=== PATIENT | male | born 1945 | race Caucasian/White ===

== ENCOUNTER → 2024-02-10 10:09 | Outpatient (REF) | payer MEDICARE, OTHER, SELFPAY | LOC: HWRAD 10:09 | PROVIDERS: ATTENDING PHYSICIAN Thoracic Surgery (Cardiothoracic Vascular Surgery); FAMILY PHYSICIAN Family Medicine; REFERRING PHYSICIAN Internal Medicine Cardiovascular Disease | DX: I25.10 Atherosclerotic heart disease of native coronary artery without angina pectoris (principal); Z01.818 Encounter for other preprocedural examination | CPT/HCPCS: 71250 ==

== ENCOUNTER 2024-02-14 07:25 | Inpatient (IN) | payer MEDICARE, OTHER, SELFPAY ==
--- NOTE | 2024-02-13 11:50 | CM ---
spoke to pt in PAT's, we discussed preop CABG teaching including sternal and driving restrictions, he is prev indep, lives with his in a split level home with 1 step to enter. he has a cane, walker and transport chair at home to use if needed.
he is agreeable to a f/u visit from the ct transitional care nurse after dc. plan is for CABG 02/13. cm role explained and all questions answered.
[2024-02-13 13:49] LABS: % Basophils 0.8 % (0-2); % Eosinophils 3.7 % (0-6); % Immature Granulocytes 0.3 % (0-0.5); % Lymphocytes 21.4 % (20.5-51.1); % Monocytes 9.9 % (1.7-9.3); % Neutrophils 63.9 % (42.2-75.2); ALT (SGPT) 37 U/L (0-50); APTT 30.2 Sec (23.4-35.0); AST (SGOT) 39 U/L (17-59); Absolute Basophils 0.1 10^3/uL (0-0.2); Absolute Eosinophils 0.2 10^3/uL (0-0.7); Absolute Lymphocytes 1.4 10^3/uL (1.2-3.4); Absolute Monocytes 0.6 10^3/uL (0.1-0.6); Absolute Neutrophils 4.1 10^3/uL (1.4-6.5); Albumin 4.5 g/dl (3.5-5.0); Alkaline Phosphatase 62 U/L (38-126); Blood Urea Nitrogen 31 mg/dl (9-20); Calcium 9.7 mg/dl (8.4-10.2); Carbon Dioxide 26 mmol/L (22-30); Chloride 100 mmol/L (98-107); Direct Bilirubin 0.2 mg/dl (0.0-0.4); Glucose 116 mg/dl (70-99); Hematocrit 38.4 % (39.0-52.0); Hemoglobin 13.3 g/dL (13.0-18.0); INR 1.09; Mean Corp Hgb Conc. 34.6 g/dL (33.0-37.0); Mean Corpuscular Hgb 33.8 pg (27.0-31.0); Mean Corpuscular Volume 97.7 fL (80.0-94.0); Nucleated Red Blood Cells % 0 % (-); PT 13.9 Sec (11.4-14.6); Platelet Count 352 10^3/uL (130-400); Potassium 4.1 mmol/L (3.5-5.1); Red Blood Cell Count 3.93 10^6/uL (4.70-6.10); Red Cell Dist. Width 12.5 % (11.5-14.5); Sodium 138 mmol/L (135-145); Total Bilirubin 0.4 mg/dl (0.2-1.3); White Blood Cell Count 6.4 10^3/uL (4.8-10.8); eGFR 40.25
[2024-02-13 14:04] LABS: Urine Albumin Negative (Neg - Trace); Urine Bilirubin Negative (Negative); Urine Character Clear (Clear); Urine Color Yellow; Urine Glucose 3+ (Negative); Urine Ketone Negative (Negative); Urine Leukocyte Negative (Negative); Urine Nitrite Negative (Negative); Urine Occult Blood Negative (Negative); Urine Specific Gravity 1.015 (<1.030); Urine Urobilinogen Negative (Neg - 1+)
[2024-02-14] VITALS (11 sets, daily range): BP systolic 87–128; BP diastolic 54–88; BMI 28.0
--- NOTE | 2024-02-14 07:30 | W.CVOR.SURPR ---
CVOR Surgeon Immed Pre Op
-
I have examined this patient prior to performance of the scheduled procedure.
The patient's condition is unchanged from the time of the dictated/written History and
Physical and the patient is able to undergo the scheduled procedure.
CABG + KANNAN Clip
--- NOTE | 2024-02-14 08:24 | CM ---
pt in OR today, cm to follow.
[2024-02-14 09:23] LABS: Glycohemoglobin (HgbA1c) 6.5 % (4.0-5.6)
[2024-02-14] MEDS: MAGNESIUM OXIDE 500 MG PO (09:37)
[2024-02-14] MEDS: PROTONIX 40 MG PO (09:37)
[2024-02-14] MEDS: LOPRESSOR 25 MG PO (09:37)
--- NOTE | 2024-02-14 09:45 | PTCARENOTE ---
Pt arrived to CVICU at 0730 into room 2261. Pt confirmed nothing to eat or drink since midnight. Confirmed showering x2 with surgical wash. Pt clipped and prepped. ABO collected and sent to lab. Height, weight, vitals obtained. Admission questions
completed. Pre-op medications administered. Pt's at bedside. Anesthesia to bedside, placed left radial A line and peripheral IV.
[2024-02-14] MEDS: BACTROBAN 2% OINTMENT 1 APPLIC NASAL ×2 (09:47→19:48)
[2024-02-14 11:39] LABS: ACT+ - POC 96 Seconds (82-134)
[2024-02-14 12:13] LABS: Urine Albumin Negative (Neg - Trace); Urine Bilirubin Negative (Negative); Urine Character Clear (Clear); Urine Color Yellow; Urine Glucose 3+ (Negative); Urine Ketone Negative (Negative); Urine Leukocyte Negative (Negative); Urine Nitrite Negative (Negative); Urine Occult Blood Negative (Negative); Urine Specific Gravity 1.015 (<1.030); Urine Urobilinogen Negative (Neg - 1+)
[2024-02-14 13:40] LABS: ACT+ - POC 467 Seconds (82-134)
[2024-02-14 14:04] LABS: B.E. - POC -2.4 mmol/L; Glucose - POC 101 mg/dl (65-99); HCO3 - POC 22 mmol/L (21-29); Hematocrit - POC 33 % PCV (42-52); Hemodilution- POC Yes; Hemoglobin Calculated - POC 11.4; Ionized Calcium - POC 1.27 mmol/L (1.12-1.27); PCO2 - POC 38 mmHg (35-45); PO2 - POC 536 mmHg (80-100); POC Comment PRE; Potassium - POC 3.5 mmol/L (3.6-5.0); Sodium - POC 143 mmol/L (135-145); pH - POC 7.38 (7.35-7.45)
[2024-02-14 14:13] LABS: ACT+ - POC 479 Seconds (82-134)
[2024-02-14 14:40] LABS: B.E. - POC 0.1 mmol/L; Glucose - POC 152 mg/dl (65-99); HCO3 - POC 25 mmol/L (21-29); Hematocrit - POC 24 % PCV (42-52); Hemodilution- POC Yes; Ionized Calcium - POC 1.08 mmol/L (1.12-1.27); O2 Saturation %Calculated-POC 99.9 5 (92-96); PCO2 - POC 39 mmHg (35-45); PO2 - POC 307 mmHg (80-100); POC Comment CPB; Potassium - POC 4.8 mmol/L (3.6-5.0); Sodium - POC 139 mmol/L (135-145); pH - POC 7.41 (7.35-7.45)
[2024-02-14 14:49] LABS: ACT+ - POC 470 Seconds (82-134)
[2024-02-14 15:01] LABS: B.E. - POC -0.3 mmol/L; Glucose - POC 135 mg/dl (65-99); HCO3 - POC 24 mmol/L (21-29); Hematocrit - POC 25 % PCV (42-52); Hemodilution- POC Yes; Hemoglobin Calculated - POC 8.6; Ionized Calcium - POC 1.14 mmol/L (1.12-1.27); O2 Saturation %Calculated-POC 99.8 5 (92-96); PCO2 - POC 39 mmHg (35-45); PO2 - POC 229 mmHg (80-100); POC Comment CPB; Potassium - POC 4.2 mmol/L (3.6-5.0); Sodium - POC 143 mmol/L (135-145)
[2024-02-14 15:10] LABS: ACT+ - POC 433 Seconds (82-134)
[2024-02-14 15:40] LABS: B.E. - POC 0.1 mmol/L; Glucose - POC 126 mg/dl (65-99); HCO3 - POC 25 mmol/L (21-29); Hematocrit - POC 26 % PCV (42-52); Hemodilution- POC Yes; Hemoglobin Calculated - POC 8.9; Ionized Calcium - POC 1.17 mmol/L (1.12-1.27); PCO2 - POC 39 mmHg (35-45); PO2 - POC 407 mmHg (80-100); POC Comment WARM; Potassium - POC 4.1 mmol/L (3.6-5.0); Sodium - POC 144 mmol/L (135-145); pH - POC 7.41 (7.35-7.45)
[2024-02-14 15:44] LABS: ACT+ - POC 90 Seconds (82-134)
[2024-02-14 15:50] LABS: B.E. - POC -1.9 mmol/L; Glucose - POC 129 mg/dl (65-99); HCO3 - POC 23 mmol/L (21-29); Hematocrit - POC 27 % PCV (42-52); Hemodilution- POC Yes; Hemoglobin Calculated - POC 9.3; Ionized Calcium - POC 1.42 mmol/L (1.12-1.27); O2 Saturation %Calculated-POC 99.7 5 (92-96); PCO2 - POC 37 mmHg (35-45); PO2 - POC 205 mmHg (80-100); POC Comment POST; Potassium - POC 3.9 mmol/L (3.6-5.0); Sodium - POC 144 mmol/L (135-145)
[2024-02-14] MEDS: NOVOLOG FLEXPEN SC ×2 (16:07→16:16)
[2024-02-14] MEDS: TYLENOL PO ×2 (16:16→21:20)
[2024-02-14] MEDS: NEURONTIN PO (16:16)
[2024-02-14] MEDS: PACERONE PO ×2 (16:16→23:40)
--- NOTE | 2024-02-14 16:18 | W.PN.CD ---
Addendum entered and electronically signed by Jovany Humphries MD 02/14/24 16:50:
I saw and examined the patient.
The MANUFACTURING QUALITY TECHNICIAN's note was reviewed and I agree with the note.
Comment: 78M with a history of prostate cancer, s/p XRT, hypertension, dyslipidemia with statin intolerance, and type 2 diabetes who was referred to cardiology for an abnormal EKG. He endorsed more fatigue and decreased activity tolerance. He was
found to have an ejection fraction of 40% along with an abnormal stress test. He was referred for [facility] which demonstrated multivessel coronary artery disease; he is now s/p 5 vessel CABG.
- routine post-op care
- wean vent as tolerated
Original Note:
Today's Communication / Plan
-
Follow telemetry
Postoperative management per CT surgery
Impression / Plan
-
BACKGROUND: 78M with a history of prostate cancer, s/p XRT, hypertension, dyslipidemia with statin intolerance, and type 2 diabetes who was referred to cardiology for an abnormal EKG. He endorsed more fatigue and decreased activity tolerance. He
was found to have an ejection fraction of 40% along with an abnormal stress test. He was referred for [facility] which demonstrated multivessel coronary artery disease.
Director Of Enrollment: Dr. Krunal Lujan
CAD s/p CABG x5 on 02/14/[address] Hastings
-Pre EF 45% & 60% post
-EKG with sinus with PVCs
-Not requiring support
-Follow telemetry
HTN, follow post operatively
Type II DM, Hgba1c 6.5%
Dyslipidemia, statin intolerant, on Nexlizet
CKD Stage 3
Prostate cancer s/p XRT
Former smoker
SUBJECTIVE:
Intubated and sedated.
Physical Exam
Vital Signs/Labs
Vital Signs
Temp Pulse Resp BP Pulse Ox
97.4 F 57 16 124/84 100
02/14/24 07:55 02/14/24 11:15 02/14/24 11:15 02/14/24 07:39 02/14/24 11:15
02/13/24 02/14/24 02/15/24
06:59 06:59 06:59
Actual Weight 83.6 kg
PT 13.9 Sec (11.4-14.6) 02/13/24 09:09
INR 1.09 02/13/24 09:09
APTT 30.2 Sec (23.4-35.0) 02/13/24 09:09
Physical Exam
Constitutional: No acute distress and Comfortable
EENT: Anicteric and Moist mucous membranes
Cardiovascular: Rhythm & rate is regular, Pedal edema is absent and S1S2 is normal
Respiratory: Lungs clear to auscul. and Other (Intubated and sedated on mechanical ventilation)
GI: Soft, Distention absent and Flat
Neuro/Psych: Other (Sedated)
Other: Skin (Warm and dry without edema)
Data Reviewed
-
Date of Service: February 14, 2024
EKG: Report Reviewed by me
Labs: Labs Reviewed by me
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
--- NOTE | 2024-02-14 16:30 | PTCARENOTE ---
Addendum entered by Brittney Cr RN 02/14/24 19:10:
CI 2.48, PA pressures 20s/10s. CVP 7-8.
Original Note:
Received patient from CVOR at 1630. Pt intubated and sedated. POX 95%. 8.0 ETT 22cm at the lip. SIMV 60% 12 600 5/5. Left pleural chest tube to -20cm suction draining red fluid. Mediastinal chest tubes x2 y-sited to 1 atrium to -20cm suction
draining red fluid. No air leaks, tidaling, or crepitus noted. SR on tele with rates in the 90s. BP stable off gtts. +Rub. Bilateral radial pulses palpable. Bilateral DP pulses weakly palpable. No edema noted. Epicardial v-wire intact. Sensing and
Stimulation thresholds completed and unable to achieve capture, CT PAs notified. Abdomen soft, nontender. Hypoactive BS. Lino catheter intact draining adequate amounts of clear yellow urine. Sternal incision approximated with skin glue, METAL SASH SETTER. Left
groin puncture site approximated with skin glue, METAL SASH SETTER. Left SVG harvest approximated with skin glue and SAUL-CDI. Right IJ cordis with swan floated to 43cm. Left radial paresh intact with appropriate waveform. All lines flushed, leveled, and zeroed.
Right AC 18g PIV intact. See MAR for medication administration. See worklist for complete nursing assessment. Post op EKG, CXR, and labs completed.
Gtts on arrival:
Precedex 0.5mcg/kg/hr
Insulin 1unit/hour
NSS KVO x2
--- NOTE | 2024-02-14 16:35 | W.PN.CT.SURG ---
CT Surgery Operative Note
-
CARDIAC SURGERY OPERATIVE REPORT
Preoperative Diagnosis: Multivessel Coronary Artery Disease with proximal LAD involvement and reduced left ventricular ejection fraction
Postoperative Diagnosis: Same plus new onset atrial fibrillation
Procedure(s) Performed:
1. Standard sternotomy with aortic and right atrial cannulation
2. Coronary artery bypass grafting x 5 (In situ ALICEA to LAD, Ao to RSVG to diagonal, Ao to RSVG to Ramus sequential to LPL, Ao to RSVG to distal RCA)
3. Left atrial modified surgical maze, posterior wall and pulmonary vein isolation using RF ablation
4. Left atrial appendage exclusion
5. Endoscopic vein harvesting of left lower extremity
6. Placement of temporary ventricular pacing wires
7. Transesophageal echocardiography
Date of Surgery: 02/14/2024
Comorbidities:
1. Mild to moderately reduced left ventricular function, ischemic cardiomyopathy, chronic
2. Stable angina
3. Multivessel coronary disease
4. Type 2 diabetes mellitus
5. Hyperlipidemia
6. Hypertension
7. Gout
8. Chronic kidney disease
9. GERD
10. Hepatic steatosis
11. New onset atrial fibrillation
Attending Surgeon: Ross Hastings MD, MS
Assistants: Tatiana Garcia PA-C (present and necessary to technology assistant, endoscopic vein harvest, retraction, suction, exposure, suture management, and wound closure under my direction)
Anesthesiology: Isiah Colon MD and Carolina Quiroga CRNA
Scrub and Circulating RNs: Vanna De Luna and Rianna Ramirez, ROME, Elvira Puckett and Clair Ponce RN
Bar Tacker Sewing Machine: Carolina White CCP
Anesthesia: GETA
EBL: per perfusion records
Products: None
CPB Time: 109 minutes
Aortic Cross Clamp Time: 88 minutes
Implants:
1. KANNAN Clip, 35mm SN [id number]
Indication(s) for Procedures: This is an 78-year-old male with multivessel coronary disease involving the proximal LAD and also has diabetes. He had more fatigue and shortness of breath with activity likely is angina equivalent. His family history
was significant for coronary artery disease. His left heart cath revealed significant disease in all branches. Due to his disease pattern and stable angina, he was offered surgical revascularization which he accepted. His CHADsVasc is also
elevated and so the plan is to perform left atrial appendage ligation at time of surgery.
Conduit(s) Quality:
ALICEA - excellent / skeletonized
RSVG - excellent / uniform in size, minimal varicosities, no significant thickening
Target(s) Quality:
dRCA - good/ this was a chronically occluded lesion however there was excellent flow with test dosing of antegrade flowing approximately 40 cc a minute at a pressure of 80 mmHg.
LPL -good/this was a small target of all 5, however test dosing antegrade demonstrated adequate flow at approximately 30 to 40 cc a minute at a pressure of 80 mmHg.
RI -excellent/this was the largest target of all 5 grafts, test dosing with the distal sequential occluded demonstrated to flow approximate 50 to 60 cc a minute at a pressure of 80 mmHg. Releasing of the sequential graft demonstrated increase in
flow and drop in pressure.
Diagonal -excellent/decent sized target, flow at approximately 50 to 60 cc a minute at a pressure of 80 mmHg with test dosing antegrade.
LAD -good/according to the cath, there was some diffuse disease of the midportion to distal portion where there was good visual flow in the LAD territory upon removal of the bulldog clamp.
Findings: Left ventricular ejection fraction preoperatively was mildly reduced at approximate 45% with regional wall motion abnormalities in the anterior septal region. Following surgery his EF improved significantly to 65% and is hyperdynamic with
a cardiac index of over 2. There were no regional wall motion abnormalities coming off cardiopulmonary bypass. During cannulation he developed atrial fibrillation and so due to his age, chads Vascor, and risk for strokes, I elected to perform a
modified left atrial maze in the form of a posterior wall isolation. His left atrial appendage was verified to be free of any thrombus or debris preoperatively. A 35 mm clip was applied flush the base and totally occlusive with no residual flow on
color Doppler. The ALICEA was harvested in a skeletonized fashion. Following bypass grafting, test dose cardioplegia was given down each distal and confirmed patency and hemostasis. Each distal was probed both proximally and distally to confirm
disease and patency, respectively. He did not require any blood products, did not require any inotropic support, and was actually hyperdynamic and hypertensive requiring Cardene. After coming off cardiopulmonary bypass he regained sinus rhythm.
Description of Procedure: The patient was taken to the operating room. Their identity and procedure to be performed were verified and they were positioned supine on the operating table. Induction via general anesthesia with endotracheal intubation
was performed and central venous access and arterial monitoring were inserted. A preoperative transesophageal echocardiogram was performed to assess cardiac function and valvular function. The patient was then prepped and draped from chin to feet in
a sterile fashion. A preoperative time-out was performed with all members of the team present. A midline chest incision was performed along with median sternotomy. Simultaneous endoscopic access of the left lower extremity for saphenous vein harvest
was obtained along with administration of an initial 5,000 units of IV heparin. A RulTract sternal retractor was positioned to exposure the left internal mammary bed. The mammary was harvested and found to have good flow. A bulldog clamp was applied
to the distal end of the mammary after dividing it. It was wrapped in a papaverine soaked RayTec and replaced back into the left hemithorax. The RulTract was exchanged for a median sternal retractor. The innominate vein was isolated. Full
heparinization was given (a total of 50,000 units). We created a pericardial well. The aortic cannulation site was chosen where it was soft, pliable, and free of calcium. Cannulation was performed with an arterial cannula in the ascending aorta and
a triple-stage venous cannula through the right atrial appendage. The arterial cannula line had an appropriate bounce and correlating pressures with test dosing. Next, a root vent/antegrade cannula was inserted into the ascending aorta. The ACT was
confirmed to be over 400 and retrograde autologous priming was performed before commencing cardiopulmonary bypass. At this point I mobilized the SVC off of the right pulmonary artery and developed the oblique sinus. The encompass RF ablation clamp
was then placed across the oblique sinus and underneath the SVC across the transverse sinus and 3 successful pairs of ablations were performed. The heart was then medialized and a 35 mm clip was applied flush the base of the left atrial appendage.
Next, the pulmonary artery was away from the aorta to facilitate a clamp site. The aortic cross-clamp was placed after decreasing the flow on the bypass and mean arterial pressure. A total of 1.2L initial dose of antegrade Del-Nido
cardioplegia solution was given and planned for re-dosing every 75 minutes as necessary. There was rapid electro-mechanical arrest of the heart at 400 cc of cardioplegia. The left ventricle was observed for distention on echocardiogram and manual
palpation. Cold slush was placed into a sponge and topically on the RV while we systemically cooled to 34 degrees centigrade.
I positioned the heart to expose the distal right coronary. A [place] blade was used to expose the coronary and perform the arteriotomy. Coronary Jorge scissors were used to enlarge the incision. The saphenous vein was trimmed and beveled to an
appropriate size. The distal anastomosis was performed using 7-0 prolene in an end-to-side fashion. Antegrade cardioplegia was administered into the graft. Appropriate hemostasis and flow were confirmed. The graft was measured for length to the
aorta and cut. The apex of the heart was then repositioned cephalad and the LPL branch was visualized. Using a [place] blade was dissected free in a similar fashion a small coronary arteriotomy was created. The hutton were quite thin but the vessel
itself was of decent caliber. Using the vein graft and end-to-side anastomosis was created with 8-0 Prolene and secured with a micro core knot. Test dosing of antegrade cardioplegia demonstrated good hemostasis and flow. The heart was then
positioned in order to accommodate a sequential graft to the ramus. A suitable site on the ramus intermedius was chosen. We dissected and prepared the distal target in a similar fashion. A [id number] anastomosis was created with a 7-0 prolene
after creating a small venotomy on the underbelly of the vein graft. Antegrade cardioplegia was administered into the graft with the distal sequential occluded. There is excellent flow and hemostasis. The graft was measured for length to the aorta
and cut. The diagonal vessel was then identified and prepared in a similar fashion. A small coronary arteriotomy was created in end-to-side anastomosis with the remaining vein graft was performed with 7-0 Prolene in a running fashion. Test dosing
of antegrade demonstrated excellent flow and hemostasis. A suitable target on the mid/distal left anterior descending was identified. We dissected and prepared the distal target in a similar fashion. We retrieved the ALICEA from the chest and created
a pericardial opening while being cognizant of the phrenic nerve to facilitate the course of the mammary. The distal end of the mammary was prepped and beveled to size. We verified orientation and length of the KAMRON and found brisk flow. An
end-to-side anastomosis was created with a 7-0 prolene. We temporarily released the bulldog clamp on the mammary to inspect flow. Perfusion to the LAD territory was visualized and hemostasis was confirmed. The bull clamp was replaced on the mammary.
The heart was filled and the root was distended with antegrade cardioplegia to make final assessment of graft length and orientation. We created 3 aortotomies using a #11 blade then a 4.0mm aortic punch. The proximal anastomoses were created in an
end-to-side fashion using 6-0 prolene. At the the same time, we re-warmed to 36.5 degrees centigrade. The bulldog clamp was removed from the mammary. Temporary bipolar ventricular pacing wires were placed on the base of the right ventricle. The
patient was placed in a Trendelenburg position and flows on bypass were lowered. The aortic cross clamp was removed and flows were slowly brought back up. All bypass grafts were inspected and were free from kinking or twisting. The distal and
proximal anastomoses appeared hemostatic. Once transesophageal echocardiography appeared satisfactory for de-airing, the flows were temporarily lowered for root vent removal. After verifying acceptable parameters, we initiated weaning from
cardiopulmonary bypass. Once we were off cardiopulmonary bypass, the venous cannula was clamped and removed. A test dose of protamine was administered and the patient was monitored for any adverse reaction before resuming protamine. Once half of the
protamine dose was delivered, pump suckers were turned off and the systolic blood pressure was lowered for aortic decannulation. The aortic cannula was removed and pursestrings were tied down. All cannulation sites were oversewn with a 4-0 prolene.
The mammary bed was inspected and hemostasis was confirmed. Once the mediastinum was hemostatic, 19Fr Leonel drain was placed in the left pleural cavity and two 24Fr Leonel drains were placed within the pericardium. The sternum was approximated with 4
#7 single and 3 #8 double stainless steel wires. Fascia was approximated with #1 vicryl suture. The subcutaneous, dermis and epidermis were closed in layers in a running fashion. The skin wound was cleansed and dressed.
All instrument, sponge, and needle counts were confirmed to be correct x 2 at the end of the operation. The patient was transferred to the cardiac intensive care unit in critical but stable condition.
I, Dr. Ross Hastings, was present, scrubbed for, and performed all critical elements of this procedure.
Ross Hastings MD, MS
Cardiothoracic Surgeon
This operative dictation was created using the [employer] dictation system. Please excuse any grammatical, typographical, or 'sound alike' errors
--- NOTE | 2024-02-14 16:41 | CON.INTV ---
Consultation
Consultation Request
Date/Time Consultation Requested: 02/14/24
Date/Time Consultation Performed: 02/14/24
Performing Provider: Stan
Reason for Consultation: CVICU
Medical History
-
History of Present Illness:
Patient is an 78-year-old male with previous history of multivessel CAD with complaints of increasing fatigue and decreased exercise tolerance in the past 6 months. Underwent cardiac catheterization on 02/07/2024 demonstrating chronically occluded
proximal RCA with significant proximal LAD disease with moderate reduction in LV function and regional wall motion abnormalities. Underwent CAB x 5 02/14/2024 and postoperative transferred to CVICU for further management.
Past Medical History
Past Medical History: Other (see list below)
Social History
Tobacco: Non-smoker
Alcohol: None
Drug: None
Family History
Family History: Reviewed & Not Pertinent
Allergies / Home Medications
Allergies
Allergy/AdvReac Type Severity Reaction Status Date / Time
Ocranlm-CXG-UaN Reductase Allergy myalgias Verified 02/14/24 09:12
Inhibitor
Home Medications
�Medication �Instructions �Recorded �Confirmed �Last Taken �Type
amlodipine 5 mg tablet 5 mg PO QPM 02/10/24 02/14/24 02/11/24 20:00 History
aspirin 81 mg tablet,delayed 81 mg PO HS 02/10/24 02/14/24 02/12/24 20:00 History
release
bempedoic acid 180 mg-ezetimibe 10 1 tab PO 02/10/24 02/14/24 02/12/24 20:00 History
mg tablet (Nexlizet)
cholecalciferol (vitamin D3) 50 50 mcg PO DAILY 02/10/24 02/14/24 02/12/24 08:00 History
mcg (2,000 unit) capsule (Vitamin
D3)
coenzyme Q10 100 mg capsule 200 mg PO DAILY 02/10/24 02/14/24 02/12/24 08:00 History
(CoQ-10)
empagliflozin 10 mg tablet 10 mg PO DAILY 02/10/24 02/14/24 02/12/24 08:00 History
(Jardiance)
hydrochlorothiazide 12.5 mg tablet 12.5 mg PO HS 02/10/24 02/14/24 02/12/24 08:00 History
multivitamin with minerals-folic 1 tab PO DAILY 02/10/24 02/14/24 02/12/24 08:00 History
acid 80 mcg chewable tablet
(Centrum Adult 50 Plus)
omeprazole 20 mg tablet,delayed 20 mg PO Q48H 02/10/24 02/14/24 02/10/24 20:00 History
release
tirzepatide 10 mg/0.5 mL 10 mg SC YEPEZ 02/10/24 02/14/24 02/11/24 12:00 History
subcutaneous pen injector
(Andreia)
Review of Systems
-
Unable to Obtain full review of systems at this time due to: Patient Intubation
Vitals / Labs / Diagnostic Testing
Vital Signs
Temp Pulse Resp BP Pulse Ox
97.4 F 57 16 124/84 100
02/14/24 07:55 02/14/24 11:15 02/14/24 11:15 02/14/24 07:39 02/14/24 11:15
Microbiology
02/13/24 09:09 Nose MRSA Screen - Final
No Methicillin Resistant Staphylococcus aureus isolated.
Diagnostic Testing:
Physical Exam
-
HEENT: Normocephalic, Anicteric and Moist Mucous Membranes
Cardiovascular: S1/S2, Regular Rhythm, Peripheral Edema (none) and Other (incision noted, CDI)
Respiratory: Clear, Non-Labored Respirations and Other (chest tubes/ETT)
GI: Soft, Non Distended and Non Tender
Neurology: Other (sedated/intubated)
Skin: Warm, Dry and Good Color
General: Comfortable and Other (NAD)
Assessment
-
Patient is an 78-year-old male with previous history of multivessel CAD with complaints of increasing fatigue and decreased exercise tolerance in the past 6 months. Underwent cardiac catheterization on 02/07/2024 demonstrating chronically occluded
proximal RCA with significant proximal LAD disease with moderate reduction in LV function and regional wall motion abnormalities. Underwent CAB x 5 02/14/2024 and postoperative transferred to CVICU for further management.
MV CAD status post CABG x 5 02/14/2024
Perioperative mechanical ventilation
Mild postoperative anemia
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
Diabetes type 2
Hyperlipidemia
Chronic kidney disease
Prostate cancer 2020 status post radiation
Gout
GERD
Fatty liver
Femur surgery
Left inguinal hernia repair
Tonsillectomy
Mohs surgery
Plan
S/p CABG POD #0
Titrate off pressors per protocol
ECHO reviewed with low-normal function
PA catheter readings reviewed
Management of chest tubes per primary service
Intubated/sedated, initiate SAT when able
Pain control
RASS goal of 0 to -1
Intubated for procedure, SBT trial when patient able to spontaneously breath
Current vent settings: SIMV 600/12/60/5
ABG(s) reviewed/adequate
CXR with no obvious opacities/infiltrates, low lung volumes, ETT in good position, lines/tubes in place
Extubate per protocol
Maintain supplement oxygen as needed
No prior history of pulmonary disease
No Prior PFTs for review
Can add nebulizers if needed
Aspiration precautions
Encouraged incentive spirometry, OOB/ambulation/early mobility
Advance diet as tolerated following extubation
GI prophylaxis if indicated for mechanical ventilation >48 hours
Monitor critical I/O's
Lino/chest tube output
Hb/platelets postoperatively stable
Trend CBC for now
Can transfuse if indicated for Hb <7, plt <50 in surgical patients
DVT prophylaxis including SCDs
Insulin protocol initiated and ongoing
Transition to SQ/off as indicated per team
We will follow
Diagnostic Data
Chest X-Ray:
CT Scan: CHEST 02/10/24- Dense coronary artery calcifications as detailed above. Calcifications are also noted involving the aortic valve. Moderate atherosclerotic plaque involving a nonaneurysmal thoracic aorta along with mild atherosclerotic plaque
involving the proximal left subclavian artery, brachiocephalic artery, and proximal to mid right subclavian artery. No active pulmonary process or suspect nodule/mass.
Echo: 01/13/24- Mildly enlarged left ventricular size, normal wall thickness and mild to moderate decrease in systolic function. Moderate hypokinesis of the anterior septum and proximal anterior hutton. The ejection fraction is estimated at 40 %.
Grade 1 diastolic dysfunction. Normal right ventricular size and function. Mild to moderate left atrial enlargement. Normal right atrium. Structurally normal mitral valve without significant stenosis w/ mild
regurgitation. Structurally normal aortic valve, mildly calcified and restricted without significant stenosis w/ trivial to mild regurgitation. Structurally normal tricuspid valve without significant stenosis w/ mild regurgitation.
Estimated pulmonary artery pressure is 25 mmHg. Structurally normal pulmonic valve without significant stenosis or regurgitation. Normal pericardium without effusion. Normal aortic root. IVC not well-seen.
PFT's:
Reports and relevant images were personally reviewed.
-----
Critical Care time 50 mins -- The patient is admitted for acute critical illness for the treatment of vital organ failure and/or prevention of further life-threatening conditions. Total care includes time spent in review of history, physical exam,
medications, hemodynamic/ventilator parameters, laboratory data, imaging and discussion with house staff, pharmacy, respiratory therapy, day spa manager, and nursing.
[2024-02-14 16:43] LABS: Glucose - Point of Care 136 mg/dl (70-99)
[2024-02-14 16:50] LABS: B.E. -3.2 mmol/L; Ionized Calcium 1.32 mMOL/L (1.15-1.33); O2 Saturation % 97.5 % (94-98); PCO2 39 mmHg (35-48); PO2 79 mmHg (83-108); Potassium 4.3 mMOL/L (3.5-5.1); Sodium 140 mMOL/L (136-145); pH 7.36 (7.35-7.45)
[2024-02-14 17:04] LABS: Blood Urea Nitrogen 27 mg/dl (9-20); Estimated Creatinine Clearance 41 ml/min; Glucose 129 mg/dl (70-99); Magnesium 2.9 mg/dl (1.6-2.3)
[2024-02-14 17:05] LABS: Hematocrit 26.7 % (39.0-52.0); Hemoglobin 9.5 g/dL (13.0-18.0); Platelet Count 170 10^3/uL (130-400)
[2024-02-14 17:08] LABS: INR 1.57; PT 18.6 Sec (11.4-14.6)
[2024-02-14 17:09] LABS: APTT 31.4 Sec (23.4-35.0)
[2024-02-14] MEDS: NSS 500 IV (17:09)
[2024-02-14] MEDS: ANCEF 10 IV ×2 (17:09)
--- NOTE | 2024-02-14 18:00 | PTCARENOTE ---
Pt awakened briefly. Able to shake head yes/no appropriately. Denies pain and nausea. Able to wiggle toes and fingers. Drift back to sleep quickly. CT PA at bedside. Epicardial v-wire leads swapped and pacer now functions appropriately. Set to back
up 50//2. No pacing noted.
[2024-02-14 18:03] LABS: Glucose - Point of Care 192 mg/dl (70-99)
--- NOTE | 2024-02-14 18:30 | PTCARENOTE ---
CHG bath completed. Pt turned from sided to side. No significant dumps from chest tubes. Pt tolerated.
--- NOTE | 2024-02-14 19:00 | PTCARENOTE ---
CI 1.9, CT DEVELOPMENT INTERN notified. No new orders at this time.
[2024-02-14 19:05] LABS: Glucose - Point of Care 150 mg/dl (70-99)
[2024-02-14] MEDS: OFIRMEV 100 IV (19:40)
[2024-02-14] MEDS: SENOKOT-S PO (19:50)
--- NOTE | 2024-02-14 20:00 | PTCARENOTE ---
Received pt from [facility]: Pt is intubated, drowsy, responding to verbal commands, MAEE, ETT 8.0, 22cm @ lip; NSR with occasional PVCs, pericardial friction rub on auscultation, palpable peripheral pulses; no edema noted, temp epicardial v-wires
with back up settings 50-8-2; Lungs sounds diminished in bases, L pleural C/T, 2 medal sternal C/T to -20 cm of wall suction, C/T drainage WNL; hypoactive B/S, abdomen soft and non-tender, Lino draining clear, yellow urine; all surgical sites
stable, C/D/I. R I/J cordis with swan is floated to 43 cm., L rad a-line, all lines level, zeroed, flushed. PIV intact. See worklist for complete nursing assessment, interventions, VS, & I&O's.
[2024-02-14 20:03] LABS: Glucose - Point of Care 150 mg/dl (70-99)
[2024-02-14 20:47] LABS: B.E. -3.4 mmol/L; HCO3 21.3 mmol/L (21-28); Ionized Calcium 1.25 mMOL/L (1.15-1.33); PCO2 36 mmHg (35-48); PO2 186 mmHg (83-108); Potassium 4.1 mMOL/L (3.5-5.1); pH 7.38 (7.35-7.45)
[2024-02-14 20:49] LABS: Hematocrit 28.7 % (39.0-52.0); Hemoglobin 10.4 g/dL (13.0-18.0); Platelet Count 245 10^3/uL (130-400)
[2024-02-14 21:04] LABS: Glucose - Point of Care 151 mg/dl (70-99)
[2024-02-14] MEDS: ANCEF 5 IV (21:22)
--- NOTE | 2024-02-14 21:45 | RESPNOTE ---
PT was extubated at this time per PLASTIC PARTS FABRICATOR. PT was placed on a weaning trial @1945 and was tolerating well. After >30 mins, an acceptable ABG result was obtained. PT was suctioned and placed on a 6 L nasal cannula and told us his name. RT Applied oral
care after extubation due to increased thick oral secretions. PT performed several IS attempts, the best being 1,000 mls.
[2024-02-14] MEDS: ALBUMIN 5% 250 IV (21:49)
--- NOTE | 2024-02-14 22:01 | PTCARENOTE ---
Pt in NSR with occassional PVS, extubated to 6L NC @ 2145, tolerated extubation, pt is AA0X3, following verbal commands
[2024-02-14] MEDS: LOW STRENGTH ASPIRIN 81 MG PO (23:01)
[2024-02-14] MEDS: ROXICODONE 2.5 MG PO (23:01)
[2024-02-14 23:09] LABS: Glucose - Point of Care 162 mg/dl (70-99)
[2024-02-14] MEDS: NEURONTIN 100 MG PO (23:50)
[2024-02-15] VITALS (33 sets, daily range): BP systolic 84–140; BP diastolic 56–84; PULSE 77; O2SAT 99–100; BMI 28.4
--- NOTE | 2024-02-15 | PTCARENOTE ---
VSS, NSR with occasional PVC, AAOx3, 4L O2 @ 100%, C/T drainage within normal limits, pt resting comfortably in bed
[2024-02-15] MEDS: ZOFRAN 4 MG IV (01:01)
[2024-02-15 01:18] LABS: Glucose - Point of Care 168 mg/dl (70-99)
[2024-02-15 02:08] LABS: Glucose - Point of Care 160 mg/dl (70-99)
[2024-02-15 03:21] LABS: Glucose - Point of Care 130 mg/dl (70-99)
[2024-02-15] MEDS: ROXICODONE 5 MG PO (03:25)
[2024-02-15 03:35] LABS: Hematocrit 26.3 % (39.0-52.0); Hemoglobin 9.6 g/dL (13.0-18.0); Mean Corp Hgb Conc. 36.5 g/dL (33.0-37.0); Mean Corpuscular Volume 90.4 fL (80.0-94.0); Mean Platelet Volume 8.6 fL (7.4-10.4); Platelet Count 210 10^3/uL (130-400); Red Blood Cell Count 2.91 10^6/uL (4.70-6.10); Red Cell Dist. Width 12.3 % (11.5-14.5)
[2024-02-15 03:58] LABS: Blood Urea Nitrogen 28 mg/dl (9-20); Calcium 9.3 mg/dl (8.4-10.2); Carbon Dioxide 22 mmol/L (22-30); Chloride 112 mmol/L (98-107); Estimated Creatinine Clearance 41 ml/min; Glucose 120 mg/dl (70-99); Magnesium 2.6 mg/dl (1.6-2.3); Potassium 3.7 mmol/L (3.5-5.1); Sodium 143 mmol/L (135-145); eGFR 50.81
[2024-02-15 04:15] LABS: Glucose - Point of Care 130 mg/dl (70-99)
[2024-02-15] MEDS: KCL 50 IV ×2 (04:27→05:39)
[2024-02-15] MEDS: FLEXERIL 5 MG PO (05:04)
[2024-02-15] MEDS: TYLENOL 1000 MG PO ×3 (05:05→21:13)
--- NOTE | 2024-02-15 05:15 | W.PN.CT ---
Today's Communication / Plan
-
-pod #1
-CI 2.16, CO 4.25. Drips: Insulin
-CT output: L pleur 85/110, 2 meds 70/110 in 12/24 hrs
-deline
-continue insulin drip
-? keep Lino, follow I/O (CKD)
-follow Cr- 1.4 today (1.7 preop)
-K 3.7 - got 40 iv KCL
-current meds (ASA, Plavix, Lopressor, Amio, Protonix). Myalgia with statins (on bempedoic acid/ezetimibe preop)
-encourage IS, OOB
Assessment / Plan
-
- mv-CAD - s/p CABG x 5 (In situ ALICEA to LAD, Ao to RSVG to diagonal, Ao to RSVG to Ramus sequential to LPL, Ao to RSVG to distal RCA); Left atrial modified maze/PVI; LAAE (35mm clip) on 02/14/[address] Hastings, pod #1
- Intraop POP: LVEF preop was mildly reduced at approximate 45% with regional wall motion abnormalities in the anterior septal region. Following surgery, EF improved significantly to 65% and is hyperdynamic with a cardiac index of over 2. There
were no regional wma postop. During cannulation he developed atrial fibrillation. A 35 mm clip was applied flush at the base and totally occlusive with no residual flow on color Doppler. After coming off cardiopulmonary bypass, he regained sinus
rhythm.
- Mild to moderately reduced left ventricular function, ischemic cardiomyopathy, chronic
- New onset atrial fibrillation
- Stable angina (fatigue and shortness of breath with activity likely his angina equivalent)
- Multivessel coronary disease
- Type 2 diabetes mellitus
- Hyperlipidemia
- Hypertension
- Gout
- CKD 3a (preop Cr 1.7)
- GERD
- Hepatic steatosis
- Acute postop blood loss anemia - stable, no transfusion
- Acute postop atelectasis
- Acute postop hypokalemia
- Acute postop hypovolemia with subsequent hypervolemia
Discussed patient care with: Nursing and Care Team
Subjective
Procedure
- s/p CABG x 5 (In situ ALICEA to LAD, Ao to RSVG to diagonal, Ao to RSVG to Ramus sequential to LPL, Ao to RSVG to distal RCA); Left atrial modified maze/PVI; LAAE (35mm clip) on 02/14/[address] Hastings
-
Date of Service: February 15, 2024
Objective Data
-
PT 18.6 Sec (11.4-14.6) H 02/14/24 16:30
INR 1.57 02/14/24 16:30
APTT 31.4 Sec (23.4-35.0) 02/14/24 16:30
Vital Signs
Vital Signs
Temp Pulse Resp BP Pulse Ox
96.7 F L 76 16 94/62 99
02/15/24 01:19 02/15/24 01:19 02/15/24 01:19 02/15/24 01:00 02/15/24 01:19
CT Intake/Output/Weight
02/14/24 02/14/24 02/15/24
06:59 18:59 06:59
Intake Total 158.4 / 910.0 751.6 / 910.0
Output Total 315 / 900 585 / 900
Balance -156.6 / 10.0 166.6 / 10.0
SaO2: 99
Physical Exam
-
General: Awake and AOx3
Cardiovascular: Regular rate & rhythm, No Murmurs and No Rub
Respiratory: Decreased Breath Sounds
Sternum: Stable
Incision: Clean, Dry and Intact
Extremities: No Edema (1+DPs b/l)
Abdomen: soft, nondistended, decreased bowels sounds
Data Reviewed
-
Lab Results: Results Reviewed
Medications: Active Meds Reviewed
Chest X-Ray: Report Reviewed and Image Reviewed
ECG: Report Reviewed and Image Reviewed
[2024-02-15] MEDS: ANCEF 5 IV ×2 (05:39→13:57)
[2024-02-15 06:11] LABS: Glucose - Point of Care 145 mg/dl (70-99)
--- NOTE | 2024-02-15 07:15 | W.PN.INTV ---
Today's Communication / Plan
Recommendations
Extubated and doing well, wean supplemental O2 as tolerated
Off pressors
Transition off insulin gtt per protocol
Chest tube management per team
Encouraged OOB, PT/IS
Assessment
-
Patient is an 78-year-old male with previous history of multivessel CAD with complaints of increasing fatigue and decreased exercise tolerance in the past 6 months. Underwent cardiac catheterization on 02/07/2024 demonstrating chronically occluded
proximal RCA with significant proximal LAD disease with moderate reduction in LV function and regional wall motion abnormalities. Underwent CAB x 5 02/14/2024 and postoperative transferred to CVICU for further management.
MV CAD status post CABG x 5 02/14/2024
Perioperative mechanical ventilation
Mild postoperative anemia
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
Diabetes type 2
Hyperlipidemia
Chronic kidney disease
Prostate cancer 2020 status post radiation
Gout
GERD
Fatty liver
Femur surgery
Left inguinal hernia repair
Tonsillectomy
Mohs surgery
Plan
S/p CABG POD #1
Off pressors
ECHO reviewed with low-normal function
PA catheter readings reviewed
Management of chest tubes per primary service
Pain control
RASS goal of 0 to -1
Intubated for procedure, extubated and doing well
ABG(s) reviewed/adequate
CXR with stable post op changes
Maintain supplement oxygen as needed, wean to off as able
No prior history of pulmonary disease
No Prior PFTs for review
Can add nebulizers if needed
Aspiration precautions
Encouraged incentive spirometry, OOB/ambulation/early mobility
Advance diet as tolerated following extubation
GI prophylaxis if indicated for mechanical ventilation >48 hours
Monitor critical I/O's
Lino/chest tube output
Hb/platelets postoperatively stable
Trend CBC for now
Can transfuse if indicated for Hb <7, plt <50 in surgical patients
DVT prophylaxis including SCDs
Insulin protocol initiated and ongoing
Transition to SQ/off as indicated per team
Diagnostic Data
Chest X-Ray:
CT Scan: CHEST 02/10/24- Dense coronary artery calcifications as detailed above. Calcifications are also noted involving the aortic valve. Moderate atherosclerotic plaque involving a nonaneurysmal thoracic aorta along with mild atherosclerotic plaque
involving the proximal left subclavian artery, brachiocephalic artery, and proximal to mid right subclavian artery. No active pulmonary process or suspect nodule/mass.
Echo: 01/13/24- Mildly enlarged left ventricular size, normal wall thickness and mild to moderate decrease in systolic function. Moderate hypokinesis of the anterior septum and proximal anterior hutton. The ejection fraction is estimated at 40 %.
Grade 1 diastolic dysfunction. Normal right ventricular size and function. Mild to moderate left atrial enlargement. Normal right atrium. Structurally normal mitral valve without significant stenosis w/ mild
regurgitation. Structurally normal aortic valve, mildly calcified and restricted without significant stenosis w/ trivial to mild regurgitation. Structurally normal tricuspid valve without significant stenosis w/ mild regurgitation.
Estimated pulmonary artery pressure is 25 mmHg. Structurally normal pulmonic valve without significant stenosis or regurgitation. Normal pericardium without effusion. Normal aortic root. IVC not well-seen.
PFT's:
Reports and relevant images were personally reviewed.
-----
Critical Care time 32 mins -- The patient is admitted for acute critical illness for the treatment of vital organ failure and/or prevention of further life-threatening conditions. Total care includes time spent in review of history, physical exam,
medications, hemodynamic/ventilator parameters, laboratory data, imaging and discussion with house staff, pharmacy, respiratory therapy, gummed tape press operator, and nursing.
Subjective Dataa
Subjective Data
Date of Service:
Date of Service: February 15, 2024
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
Subjective:
no new events ON, remains on supplemental O2
complains of incisional pain, some SOB with inspiratory pain
Objective Data
Data Reviewed
Vital Signs / I&O / Oxygen:
Vital Signs
Temp Pulse Resp BP Pulse Ox
97.4 F 75 16 126/64 99
02/15/24 06:00 02/15/24 06:03 02/15/24 06:00 02/15/24 06:03 02/15/24 06:03
Intake and Output
02/14/24 02/15/24 02/16/24
06:59 06:59 06:59
Intake Total 1160.6 / 1160.6
Output Total 1150 / 1150
Balance 10.6 / 10.6
SaO2 [CPAP] 98
SaO2 [SIMV] 98
SaO2 99
Nasal Cannula flow liters per 2
minute
Physical Exam
General: Comfortable and Other (NAD)
HEENT: Normocephalic, Anicteric and Moist Mucous Membranes
Cardiovascular: S1-S2, Regular Rhythm and Other (incision noted CDI)
Respiratory: Clear, Non-Labored Respirations and Chest Tube
GI: Soft, Non Distended and Non Tender
Neurology: Awake, Alert, Oriented, AO x 3 and No Motor Deficits
Skin: Warm, Dry and Good Color
Labs/Micro/Reports
Lab Data
02/15/24 03:23
02/15/24 03:23
Laboratory Results
02/14/24 02/14/24
16:30 20:36
PT 18.6 H
INR 1.57
APTT 31.4
pH 7.36 7.38
pCO2 39 36
pO2 79 L 186 H
HCO3 22.0 21.3
O2 Delivery Level
Microbiology
02/13/24 09:09 Nose MRSA Screen - Final
No Methicillin Resistant Staphylococcus aureus isolated.
--- NOTE | 2024-02-15 07:50 | W.PN.ANS.POP ---
Anesthesia Post Operative
- Anesthesia Post Op Note
Vital Signs Stable-See Nursing Note: Yes
Airway Patent: Yes
Adequate Pain Control: Yes
Change in Mental Status: No
Current Postoperative Nausea & Vomiting: No
Anesthesia Complications: No
General Anesthetic Recall: No
Unplanned Admission: No
Post Op Hydration Adequate: Yes
[2024-02-15 08:06] LABS: Glucose - Point of Care 132 mg/dl (70-99)
[2024-02-15] MEDS: NOVOLOG FLEXPEN SC ×2 (09:27→13:55)
[2024-02-15] MEDS: PROTONIX 40 MG PO (09:45)
[2024-02-15] MEDS: PACERONE 200 MG PO ×3 (09:45→21:12)
[2024-02-15] MEDS: LOPRESSOR 12.5 MG PO ×2 (09:45→19:39)
[2024-02-15] MEDS: SENOKOT-S 1 TABLET PO ×2 (09:45→19:39)
[2024-02-15] MEDS: NEURONTIN 100 MG PO (09:45)
[2024-02-15] MEDS: PLAVIX 75 MG PO (09:45)
[2024-02-15] MEDS: BACTROBAN 2% OINTMENT 1 APPLIC NASAL ×2 (09:46→19:38)
[2024-02-15 09:57] LABS: Glucose - Point of Care 155 mg/dl (70-99)
[2024-02-15] MEDS: LASIX 40 MG IV (10:37)
[2024-02-15 10:42] LABS: Glucose - Point of Care 119 mg/dl (70-99)
--- NOTE | 2024-02-15 10:50 | PTCARENOTE ---
Patient received from night warehouse selector resting oob in chair, AAO x 3, states pain controlled at this time. NSR via cm, SaO2 @ 99% on 2lnc. RIJ Cordis w/kvo infusing. Insulin infusing peripherally, titrating per glycemic protocol. Mediastinal chest tubes
(x 2, Y-connected to one pleurevac), L pleural chest tube to separate chamber, both placed to -20cm suction w/no air leak noted. Lino catheter to gravity. Epicardial V-wire to pulse generator set to 50bpm, no spikes appreciated. All procedural
sites stable. Dr. Hastings and team to bedside, patient updated to plan of care for the day, in agreement. See work list for full assessment and interventions performed.
[2024-02-15 11:25] LABS: Glucose - Point of Care 168 mg/dl (70-99)
[2024-02-15 12:04] LABS: Glucose - Point of Care 148 mg/dl (70-99)
--- NOTE | 2024-02-15 12:05 | PTCARENOTE ---
VS obtained, assessment stable. Patient resting comfortably, perusing menu.
[2024-02-15 13:04] LABS: Glucose - Point of Care 111 mg/dl (70-99)
[2024-02-15 13:56] LABS: Glucose - Point of Care 106 mg/dl (70-99)
[2024-02-15] MEDS: FERRLECIT 110 MG IV (14:08)
[2024-02-15] MEDS: NSS IV (14:26)
--- NOTE | 2024-02-15 14:32 | W.PN.CD ---
Today's Communication / Plan
-
Hemodynamically stable. Remains in sinus rhythm.
Continue postoperative care directed by CT surgery
Monitor postop anemia
Impression / Plan
-
78M with a history of prostate cancer, s/p XRT, hypertension, dyslipidemia with statin intolerance, and type 2 diabetes who was referred to cardiology for an abnormal EKG. ejection fraction of 40% along with an abnormal stress test. He was
referred for [facility] which demonstrated multivessel coronary artery disease.
.
Clerical Coordinator: Dr. Krunal Lujan
CAD s/p CABG x5 on 02/14/[address] Hastings
-Pre EF 45% & 60% post
-Remains in sinus.
Continue postop care as directed by CT surgery
HTN, follow post operatively
Type II DM, Hgba1c 6.5%
Dyslipidemia, statin intolerant, on Nexlizet
Prostate cancer s/p XRT
Former smoker
SUBJECTIVE:
In chair. No distress. No shortness of breath or palpitations.
Physical Exam
Vital Signs/Labs
Vital Signs
Temp Pulse Resp BP Pulse Ox
97.7 F 76 18 112/72 97
02/15/24 08:00 02/15/24 14:03 02/15/24 14:00 02/15/24 14:03 02/15/24 14:03
02/14/24 02/15/24 02/16/24
06:59 06:59 06:59
Actual Weight 84.6 kg
02/15/24 03:23
02/15/24 03:23
PT 18.6 Sec (11.4-14.6) H 02/14/24 16:30
INR 1.57 02/14/24 16:30
APTT 31.4 Sec (23.4-35.0) 02/14/24 16:30
Magnesium 2.6 mg/dl (1.6-2.3) H 02/15/24 03:23
Physical Exam
Constitutional: No acute distress
Cardiovascular: Rhythm & rate is regular
Respiratory: Wheeze Absent and Rhonchi Absent
GI: Soft
Neuro/Psych: Alert
Data Reviewed
-
Date of Service: February 15, 2024
Medical Decision Making: Reviewed Test Results
EKG: Report Reviewed by me
X-Ray/CT/US/MRI/NUC/PET: Report Reviewed by me
Labs: Labs Reviewed by me
[2024-02-15 16:05] LABS: Glucose - Point of Care 138 mg/dl (70-99)
--- NOTE | 2024-02-15 17:06 | PTCARENOTE ---
Patient seen in his room, OOB to chair, no acute complaints. BG checked, WNL, insulin gtt adjusted according to protocol. Patient SpO2 98% on 2LNC, NSR, VSS. No complaints of pain. Patient made comfortable, call chang in reach. Assessment of needs
ongoing.
[2024-02-15 17:49] LABS: Glucose - Point of Care 124 mg/dl (70-99)
[2024-02-15] MEDS: NOVOLOG FLEXPEN 4 UNITS SC (17:51)
--- NOTE | 2024-02-15 20:00 | PTCARENOTE ---
Received pt from : nursing assessment complete in chair, Pt is AAOx3, bi-lat strength equal in all extremities, NSR with occasional PVC's, Med C/T dressings C/D/I. temp epicardial wires insulated, sternal incision approx, no redness present;
Respirations clear, bilateral bases diminished, layne d/c'ed on , due to void by 2100. B/S present, hypoactive, Leg incisions approx. no redness present. Pt instructed on I/S and encouraged to use.
--- NOTE | 2024-02-15 20:00 | PTCARENOTE ---
Received pt from : nursing assessment complete in chair, Pt is AAOx3, bi-lat strength equal in all extremities, NSR with occasional PVC's, Med C/T dressings C/D/I. VVI wires insulated, sternal incision approx, no redness present;
Respirations clear, bilateral bases diminished, layne d/c'ed on , due to void by 2100. B/S present, hypoactive, Leg incisions approx. no redness present. Pt instructed on I/S and encouraged to use.
[2024-02-15 20:09] LABS: Glucose - Point of Care 150 mg/dl (70-99)
[2024-02-15] MEDS: ASPIR LOW (ENTERIC COATED) 81 MG PO (21:12)
[2024-02-15] MEDS: NON-FORMULARY ITEM 1 TABLET PO (21:14)
[2024-02-15 22:06] LABS: Glucose - Point of Care 175 mg/dl (70-99)
[2024-02-16] VITALS (36 sets, daily range): BP systolic 80–142; BP diastolic 47–89; PULSE 79; O2SAT 92–98; BMI 28.6
--- NOTE | 2024-02-16 00:35 | PTCARENOTE ---
VSS, NSR with occasional PVC's, assisted pt to bathroom, unable to void, bladder scanned for 300. protocol followed.
[2024-02-16 01:08] LABS: Glucose - Point of Care 119 mg/dl (70-99)
[2024-02-16 01:09] LABS: Glucose - Point of Care 101 mg/dl (70-99)
[2024-02-16 02:05] LABS: Glucose - Point of Care 101 mg/dl (70-99)
[2024-02-16 03:03] LABS: Glucose - Point of Care 93 mg/dl (70-99)
[2024-02-16 04:11] LABS: Glucose - Point of Care 93 mg/dl (70-99)
[2024-02-16 04:39] LABS: Hemoglobin 9.3 g/dL (13.0-18.0); Mean Corp Hgb Conc. 35.8 g/dL (33.0-37.0); Mean Corpuscular Hgb 32.9 pg (27.0-31.0); Mean Corpuscular Volume 91.9 fL (80.0-94.0); Mean Platelet Volume 8.7 fL (7.4-10.4); Platelet Count 222 10^3/uL (130-400); Red Blood Cell Count 2.83 10^6/uL (4.70-6.10); Red Cell Dist. Width 12.6 % (11.5-14.5); White Blood Cell Count 16.2 10^3/uL (4.8-10.8)
[2024-02-16 05:03] LABS: Blood Urea Nitrogen 35 mg/dl (9-20); Carbon Dioxide 24 mmol/L (22-30); Chloride 107 mmol/L (98-107); Estimated Creatinine Clearance 38 ml/min; Glucose 75 mg/dl (70-99); Magnesium 2.4 mg/dl (1.6-2.3); Sodium 137 mmol/L (135-145); eGFR 46.77
[2024-02-16] MEDS: FLOMAX 0.4 MG PO (05:26)
--- NOTE | 2024-02-16 05:32 | PTCARENOTE ---
ambulated pt to bathroom, near syncopal episode, pt safely assisted to chair, orthostatic vs obtained, CT PA Grinberrg aware, pt maintained on bedrest for at this time.
[2024-02-16] MEDS: TYLENOL 1000 MG PO ×3 (06:06→22:05)
[2024-02-16 06:10] LABS: Glucose - Point of Care 114 mg/dl (70-99)
--- NOTE | 2024-02-16 06:43 | W.PN.CT ---
Today's Communication / Plan
-
-pod #2
-in nsr 70s with occasional PVCs
-was orthostatic this am when got up to walk to the bathroom, felt dizzy, SBP dropped 20 points
-has urinary retention and got straight cathed for 400 cc this am. Started Flomax
-CT output: 2 meds 40/180 in 12/24 hrs
-diuresed 995cc on 02/14 with 40 iv Lasix - continue
-follow Cr- 1.5 today (1.4 on 02/14, 1.7 preop)
-K 4.0
-current meds (ASA, Plavix, Lopressor, Amio, Protonix). Myalgia with statins (on bempedoic acid/ezetimibe preop)
-encourage IS, OOB
Assessment / Plan
-
- mv-CAD - s/p CABG x 5 (In situ ALICEA to LAD, Ao to RSVG to diagonal, Ao to RSVG to Ramus sequential to LPL, Ao to RSVG to distal RCA); Left atrial modified maze/PVI; LAAE (35mm clip) on 02/14/[address] Hastings, pod #2
- Intraop POP: LVEF preop was mildly reduced at approximate 45% with regional wall motion abnormalities in the anterior septal region. Following surgery, EF improved significantly to 65% and is hyperdynamic with a cardiac index of over 2. There
were no regional wma postop. During cannulation he developed atrial fibrillation. A 35 mm clip was applied flush at the base and totally occlusive with no residual flow on color Doppler. After coming off cardiopulmonary bypass, he regained sinus
rhythm.
- Mild to moderately reduced left ventricular function, ischemic cardiomyopathy, chronic
- New onset atrial fibrillation
- Stable angina (fatigue and shortness of breath with activity likely his angina equivalent)
- Multivessel coronary disease
- Type 2 diabetes mellitus
- Hyperlipidemia
- Hypertension
- Gout
- CKD 3a (preop Cr 1.7)
- GERD
- Hepatic steatosis
- Acute postop blood loss anemia - stable, no transfusion
- Acute postop atelectasis
- Acute postop hypokalemia
- Acute postop hypovolemia with subsequent hypervolemia
- Acute postop orthostasis
- Acute postop urinary retention
Discussed patient care with: Nursing and Care Team
Subjective
Procedure
- s/p CABG x 5 (In situ ALICEA to LAD, Ao to RSVG to diagonal, Ao to RSVG to Ramus sequential to LPL, Ao to RSVG to distal RCA); Left atrial modified maze/PVI; LAAE (35mm clip) on 02/14/[address] Hastings
-
Date of Service: February 16, 2024
Objective Data
-
PT 18.6 Sec (11.4-14.6) H 02/14/24 16:30
INR 1.57 02/14/24 16:30
APTT 31.4 Sec (23.4-35.0) 02/14/24 16:30
Vital Signs
Vital Signs
Temp Pulse Resp BP Pulse Ox
98.7 F 73 16 116/63 95
02/15/24 23:52 02/16/24 00:00 02/15/24 23:52 02/16/24 00:00 02/16/24 00:00
CT Intake/Output/Weight
02/15/24 02/15/24 02/16/24
06:59 18:59 06:59
Intake Total 1002.2 / 1160.6 458.6 / 551.6 93 / 551.6
Output Total 835 / 1150 1135 / 1155 20 / 1155
Balance 167.2 / 10.6 -676.4 / -603.4 73 / -603.4
SaO2: 95
Physical Exam
-
General: Awake and AOx3
Cardiovascular: Regular rate & rhythm, No Murmurs, +Rub
Respiratory: Decreased Breath Sounds, rales at bases, no wheeze
Sternum: Stable
Incision: Clean, Dry and Intact
Abdomen: soft, nondistended, decreased bowels sounds
Extremities: 1+ Edema hands and legs b/l (1+DPs b/l)
Data Reviewed
-
Lab Results: Results Reviewed
Medications: Active Meds Reviewed
Chest X-Ray: Report Reviewed and Image Reviewed
ECG: Image Reviewed
--- NOTE | 2024-02-16 07:23 | W.PN.INTV ---
Today's Communication / Plan
Recommendations
Event noted, likely orthostatic, monitor
Stable on RA, encouraged further IS/OOB
Transitioned off insulin gtt
Further postop management per team
Can likely transfer to tele, we will sign off upon transfer
Assessment
-
Patient is an 78-year-old male with previous history of multivessel CAD with complaints of increasing fatigue and decreased exercise tolerance in the past 6 months. Underwent cardiac catheterization on 02/07/2024 demonstrating chronically occluded
proximal RCA with significant proximal LAD disease with moderate reduction in LV function and regional wall motion abnormalities. Underwent CAB x 5 02/14/2024 and postoperative transferred to CVICU for further management.
MV CAD status post CABG x 5 02/14/2024
Perioperative mechanical ventilation
Mild postoperative anemia
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
Diabetes type 2
Hyperlipidemia
Chronic kidney disease
Prostate cancer 2020 status post radiation
Gout
GERD
Fatty liver
Femur surgery
Left inguinal hernia repair
Tonsillectomy
Mohs surgery
Plan
S/p CABG POD #2
Off pressors
ECHO reviewed with low-normal function
PA catheter readings reviewed
Management of chest tubes per primary service
Had episode of pre-syncope
Likely orthostatic hypotension
Pain control
RASS goal of 0 to -1
Intubated for procedure, extubated and doing well
ABG(s) reviewed/adequate
CXR with stable post op changes
Maintain supplement oxygen as needed, wean to off as able
No prior history of pulmonary disease
No Prior PFTs for review
Can add nebulizers if needed
Aspiration precautions
Encouraged incentive spirometry, OOB/ambulation/early mobility
Advance diet as tolerated following extubation
GI prophylaxis if indicated for mechanical ventilation >48 hours
Monitor critical I/O's
Lino/chest tube output
Hb/platelets postoperatively stable
Trend CBC for now
Can transfuse if indicated for Hb <7, plt <50 in surgical patients
DVT prophylaxis including SCDs
Insulin protocol initiated and transitioned to SQ
Adjustments as indicated per team
Diagnostic Data
Chest X-Ray:
CT Scan: CHEST 02/10/24- Dense coronary artery calcifications as detailed above. Calcifications are also noted involving the aortic valve. Moderate atherosclerotic plaque involving a nonaneurysmal thoracic aorta along with mild atherosclerotic plaque
involving the proximal left subclavian artery, brachiocephalic artery, and proximal to mid right subclavian artery. No active pulmonary process or suspect nodule/mass.
Echo: 01/13/24- Mildly enlarged left ventricular size, normal wall thickness and mild to moderate decrease in systolic function. Moderate hypokinesis of the anterior septum and proximal anterior hutton. The ejection fraction is estimated at 40 %.
Grade 1 diastolic dysfunction. Normal right ventricular size and function. Mild to moderate left atrial enlargement. Normal right atrium. Structurally normal mitral valve without significant stenosis w/ mild
regurgitation. Structurally normal aortic valve, mildly calcified and restricted without significant stenosis w/ trivial to mild regurgitation. Structurally normal tricuspid valve without significant stenosis w/ mild regurgitation.
Estimated pulmonary artery pressure is 25 mmHg. Structurally normal pulmonic valve without significant stenosis or regurgitation. Normal pericardium without effusion. Normal aortic root. IVC not well-seen.
PFT's:
Reports and relevant images were personally reviewed.
-----
Critical Care time 32 mins -- The patient is admitted for acute critical illness for the treatment of vital organ failure and/or prevention of further life-threatening conditions. Total care includes time spent in review of history, physical exam,
medications, hemodynamic/ventilator parameters, laboratory data, imaging and discussion with house staff, pharmacy, respiratory therapy, bin worker, and nursing.
Subjective Dataa
Subjective Data
Date of Service:
Date of Service: February 16, 2024
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
Subjective:
Doing well now, stable on RA
Had syncopal episode earlier today, likely orthostatic
Objective Data
Data Reviewed
Vital Signs / I&O / Oxygen:
Vital Signs
Temp Pulse Resp BP Pulse Ox
98.4 F 74 16 142/73 95
02/16/24 06:00 02/16/24 06:00 02/16/24 06:00 02/16/24 06:00 02/16/24 06:00
Intake and Output
02/15/24 02/16/24 02/17/24
06:59 06:59 06:59
Intake Total 1160.6 / 1160.6 863.8 / 863.8
Output Total 1150 / 1150 1575 / 1575
Balance 10.6 / 10.6 -711.2 / -711.2
SaO2 [CPAP] 98
SaO2 [SIMV] 98
SaO2 95
Nasal Cannula flow liters per 2
minute
Physical Exam
General: Comfortable and Other (NAD)
HEENT: Normocephalic, Anicteric and Moist Mucous Membranes
Cardiovascular: S1-S2, Regular Rhythm and Other (incision noted CDI)
Respiratory: Clear and Non-Labored Respirations
GI: Soft, Non Distended and Non Tender
Neurology: Awake, Alert, Oriented, AO x 3 and No Motor Deficits
Skin: Warm, Dry and Good Color
Labs/Micro/Reports
Lab Data
02/16/24 04:10
02/16/24 04:10
Microbiology
02/13/24 09:09 Nose MRSA Screen - Final
No Methicillin Resistant Staphylococcus aureus isolated.
--- NOTE | 2024-02-16 07:35 | W.PN.UPDATE ---
Update Note
Progress Note Update
No pacing requirements overnight. Epicardial bipolar pacing site cleansed with CHG , suture removed and wire removed without dificulty. VS q15min x 4 and bedrest x 1 hour.
--- NOTE | 2024-02-16 07:47 | PTCARENOTE ---
assumed care of pt from x ray control equipment repairer nurse. VSS, palpable pulses, AAOx3, slightly anxious demeanor, NSR with PVCs per tele, epicardial wire insulated at present, 2L NC 95%, IS encouraged, plan of care reviewed questions encouraged.
--- NOTE | 2024-02-16 07:59 | PTCARENOTE ---
epicardial pulled by LEAD RAMP AGENT, VS q15min per protocol, Bed rest x1hr pt tolerated.
[2024-02-16 08:14] LABS: Glucose - Point of Care 73 mg/dl (70-99)
[2024-02-16] MEDS: SENOKOT-S 1 TABLET PO ×2 (08:15→19:56)
[2024-02-16] MEDS: LASIX 40 MG IV (08:15)
[2024-02-16] MEDS: PLAVIX 75 MG PO (08:15)
[2024-02-16] MEDS: PACERONE 200 MG PO (08:15)
[2024-02-16] MEDS: LOPRESSOR 12.5 MG PO ×2 (08:15→21:09)
[2024-02-16] MEDS: BACTROBAN 2% OINTMENT 1 APPLIC NASAL ×2 (08:16→19:56)
[2024-02-16] MEDS: PROTONIX 40 MG PO (08:18)
[2024-02-16] MEDS: NOVOLOG FLEXPEN SC (08:37)
[2024-02-16 09:34] LABS: Glucose - Point of Care 98 mg/dl (70-99)
--- NOTE | 2024-02-16 09:51 | PTCARENOTE ---
VSS, NSR per tele, AAOx3. CT removed, pt tolerated
--- NOTE | 2024-02-16 09:51 | W.PN.CD ---
Today's Communication / Plan
-
- Remove the pacing wire.
- OOB to chair.
- Metoprolol, and ASA/Plavix on board.
Impression / Plan
-
78M with a history of prostate cancer, s/p XRT, hypertension, dyslipidemia with statin intolerance, and type 2 diabetes who was referred to cardiology for an abnormal EKG. ejection fraction of 40% along with an abnormal stress test. He was
referred for [facility] which demonstrated multivessel coronary artery disease.
.
Social Sciences Chair: Dr. Kruanl Lujan
CAD s/p CABG x5 on 02/14/[address] Hastings
-Pre EF 45% & 60% post
-Remains in sinus.- no pacing needed
Continue postop care as directed by CT surgery
HTN, follow post operatively
Type II DM, Hgba1c 6.5%
Dyslipidemia, statin intolerant, on Nexlizet
Prostate cancer s/p XRT
Former smoker
SUBJECTIVE:
In chair. No distress. No shortness of breath or palpitations.
Physical Exam
Vital Signs/Labs
Vital Signs
Temp Pulse Resp BP Pulse Ox
98.4 F 72 16 93/58 95
02/16/24 07:39 02/16/24 07:30 02/16/24 07:39 02/16/24 07:30 02/16/24 07:39
02/15/24 02/16/24 02/17/24
06:59 06:59 06:59
Actual Weight 84.6 kg 85.3 kg
02/16/24 04:10
02/16/24 04:10
PT 18.6 Sec (11.4-14.6) H 02/14/24 16:30
INR 1.57 02/14/24 16:30
APTT 31.4 Sec (23.4-35.0) 02/14/24 16:30
Magnesium 2.4 mg/dl (1.6-2.3) H 02/16/24 04:10
Physical Exam
Constitutional: No acute distress and Comfortable
EENT: Anicteric and Moist mucous membranes
Cardiovascular: Rhythm & rate is regular, Pedal edema is absent and JVD pressure is normal
Respiratory: Respiratory effort normal, Lungs clear to auscul., Wheeze Absent and Crackles Present
GI: Soft, Non tender and Normal bowel sounds
Neuro/Psych: Alert, Oriented and Motor deficits absent
Other: Skin
Data Reviewed
-
Date of Service: February 16, 2024
Medical Decision Making: Reviewed Test Results, Independent Historian Assessment and Test Interpretation
EKG: Tracing Personally Visualized and interpreted
Echo: Report Reviewed by me
Labs: Labs Reviewed by me
Old Records: Reviewed
[2024-02-16 11:12] LABS: Glucose - Point of Care 182 mg/dl (70-99)
[2024-02-16] MEDS: NOVOLOG FLEXPEN 4 UNITS SC (11:21)
--- NOTE | 2024-02-16 11:23 | PTCARENOTE ---
Ambulating in hallway with Cardiac rehab. Became light headed and wobbly while resting at the window . Assisted to sitting. BP systolic 110 manually. Pt recovered w/o intervention. Able to ambulate back to room.
--- NOTE | 2024-02-16 12:34 | PTCARENOTE ---
routine VS obtained, pt due to void bladder scanned for 828ml. pt requesting to attempt to void in BR, while ambulating pt stated 'I don't feel good', and pt syncopal guided to chair by RNs. incontinent of urine, CT team arrived at room. awoke
spontaneously AAOx3 BP 124 systolic, assisted back to bed. proceeded with straight cath 700 ml. VSS in bed call chang within reach.
[2024-02-16] MEDS: JARDIANCE 10 MG PO (14:29)
[2024-02-16] MEDS: FERRLECIT 110 MG IV (14:29)
[2024-02-16] MEDS: NSS 500 IV ×2 (14:30→21:21)
--- NOTE | 2024-02-16 15:42 | PTCARENOTE ---
routine VSS, AAOx3, famliy at bedside, assessment remains unchanged
[2024-02-16 17:01] LABS: Glucose - Point of Care 163 mg/dl (70-99)
[2024-02-16] MEDS: NOVOLOG FLEXPEN-MODERATE RESISTANCE 1 UNITS SC (17:36)
--- NOTE | 2024-02-16 20:00 | PTCARENOTE ---
[facility] Pt in chair for assessment; Pt is AAOx3; VSS, NSR with occasional PAC's & PVC's, Pulses palpable, - edema BUE, trace edema LLE, lungs clear, diminished bi-lateral bases, I/S 1500, encouraged pt to use I/S; Lino present,
clear, yellow urine, B/S present; Sternal incision approx, C/T dressings C/D/I, L Leg incisions approx. no redness or drainage present; discussed plan of care with pt. Pt resting in chair comfortably.
[2024-02-16] MEDS: CORDARONE 103 MG IV (21:10)
[2024-02-16] MEDS: NON-FORMULARY ITEM 1 TABLET PO (22:04)
[2024-02-16] MEDS: ASPIR LOW (ENTERIC COATED) 81 MG PO (22:05)
[2024-02-17] VITALS (19 sets, daily range): BP systolic 88–170; BP diastolic 57–84; PULSE 79; O2SAT 97–99; BMI 28.2
--- NOTE | 2024-02-17 00:18 | PTCARENOTE ---
VSS, pt safely assisted to bed, amiodarone bolus 150 mg given per protocol, CHG bath given, nursing assessment unchanged from prior.
[2024-02-17 00:41] LABS: Glucose - Point of Care 165 mg/dl (70-99)
[2024-02-17 03:28] LABS: Hematocrit 25.3 % (39.0-52.0); Mean Corp Hgb Conc. 35.6 g/dL (33.0-37.0); Mean Corpuscular Hgb 32.4 pg (27.0-31.0); Mean Platelet Volume 8.9 fL (7.4-10.4); Platelet Count 228 10^3/uL (130-400); Red Blood Cell Count 2.78 10^6/uL (4.70-6.10); Red Cell Dist. Width 12.6 % (11.5-14.5); White Blood Cell Count 15.9 10^3/uL (4.8-10.8)
--- NOTE | 2024-02-17 03:31 | PTCARENOTE ---
VSS, labs drawn and sent, pt remains in NSR with PVC's, Nursing assessment unchanged from prior.
[2024-02-17 03:51] LABS: Blood Urea Nitrogen 36 mg/dl (9-20); Calcium 8.7 mg/dl (8.4-10.2); Carbon Dioxide 23 mmol/L (22-30); Chloride 103 mmol/L (98-107); Estimated Creatinine Clearance 38 ml/min; Glucose 130 mg/dl (70-99); Magnesium 2.1 mg/dl (1.6-2.3); Sodium 133 mmol/L (135-145); eGFR 46.77
--- NOTE | 2024-02-17 05:12 | W.PN.CT ---
Today's Communication / Plan
-
-pod #3
-PACs, PVCs last night - gave iv Amio bolus only. Currently, in nsr with occasional PVCs- continue Lopressor
-monitor rhythm
-Lino reinserted 02/15 for retention -Flomax started 02/15
-? Midodrine for symptomatic orthostasis
-Cr stable 1.5
-diurese
-encourage IS, OOB
Assessment / Plan
-
- mv-CAD - s/p CABG x 5 (In situ ALICEA to LAD, Ao to RSVG to diagonal, Ao to RSVG to Ramus sequential to LPL, Ao to RSVG to distal RCA); Left atrial modified maze/PVI; LAAE (35mm clip) on 02/14/[address] Hastings, pod #3
- Intraop POP: LVEF preop was mildly reduced at approximate 45% with regional wall motion abnormalities in the anterior septal region. Following surgery, EF improved significantly to 65% and is hyperdynamic with a cardiac index of over 2. There
were no regional wma postop. During cannulation he developed atrial fibrillation. A 35 mm clip was applied flush at the base and totally occlusive with no residual flow on color Doppler. After coming off cardiopulmonary bypass, he regained sinus
rhythm.
- Mild to moderately reduced left ventricular function, ischemic cardiomyopathy, chronic
- New onset atrial fibrillation
- Stable angina (fatigue and shortness of breath with activity likely his angina equivalent)
- Multivessel coronary disease
- Type 2 diabetes mellitus
- Hyperlipidemia
- Hypertension
- Gout
- CKD 3a (preop Cr 1.7)
- GERD
- Hepatic steatosis
- Acute postop blood loss anemia - stable, no transfusion
- Acute postop atelectasis
- Acute postop hypokalemia
- Acute postop hypovolemia with subsequent hypervolemia
- Acute postop orthostasis with several episodes of near-syncope/syncope with ambulation
- Acute postop urinary retention- s/p straight cath x2 - Lino reinserted 02/15
Discussed patient care with: Nursing and Care Team
Subjective
Procedure
- s/p CABG x 5 (In situ ALICEA to LAD, Ao to RSVG to diagonal, Ao to RSVG to Ramus sequential to LPL, Ao to RSVG to distal RCA); Left atrial modified maze/PVI; LAAE (35mm clip) on 02/14/[address] Hastings
-
Date of Service: February 17, 2024
Objective Data
-
Lab Results
02/17/24 03:12
02/17/24 03:12
PT 18.6 Sec (11.4-14.6) H 02/14/24 16:30
INR 1.57 02/14/24 16:30
APTT 31.4 Sec (23.4-35.0) 02/14/24 16:30
Vital Signs
Vital Signs
Temp Pulse Resp BP Pulse Ox
99.2 F 75 16 116/57 94
02/17/24 03:10 02/17/24 00:39 02/17/24 03:10 02/17/24 00:39 02/17/24 03:10
CT Intake/Output/Weight
02/16/24 02/16/24 02/17/24
06:59 18:59 06:59
Intake Total 405.2 / 863.8 25.1 / 25.1
Output Total 440 / 1575 1400 / 1400
Balance -34.8 / -711.2 -1374.9 / -1374.9
SaO2: 94
Physical Exam
-
General: Awake and AOx3
Cardiovascular: Regular rate & rhythm, No Murmurs and Rub
Respiratory: Decreased Breath Sounds
Sternum: Stable
Incision: Clean, Dry and Intact
Extremities: Other (trace edema b/l)
Data Reviewed
-
Lab Results: Results Reviewed
Medications: Active Meds Reviewed
Chest X-Ray: Report Reviewed and Image Reviewed
ECG: Report Reviewed and Image Reviewed
[2024-02-17] MEDS: TYLENOL 1000 MG PO ×3 (07:04→22:24)
--- NOTE | 2024-02-17 07:30 | PTCARENOTE ---
VSS, NSR w/ monomorphic PVCs, AAOx3, pt tolerating OOB to chair, ambulated outside the room down the fofana, lungs diminished at bases B/L, pox 95% on RA, hypoactive bowel sounds, RIJ cordis infusing KVO, Lino output of 300 mL, plan of care discussed
questions encouraged.
[2024-02-17] MEDS: PROTONIX 40 MG PO (08:27)
[2024-02-17] MEDS: PLAVIX 75 MG PO (08:28)
[2024-02-17] MEDS: JARDIANCE 10 MG PO (08:28)
[2024-02-17] MEDS: SENOKOT-S 1 TABLET PO ×2 (08:28→20:33)
[2024-02-17] MEDS: CALCIUM CHLORIDE 10% SYRINGE 60 MG IV (08:28)
[2024-02-17] MEDS: BACTROBAN 2% OINTMENT 1 APPLIC NASAL ×2 (08:28→20:33)
[2024-02-17 08:42] LABS: Glucose - Point of Care 143 mg/dl (70-99)
[2024-02-17] MEDS: TOPROL XL 12.5 MG PO (08:50)
--- NOTE | 2024-02-17 09:36 | W.PN.CD ---
Today's Communication / Plan
-
Tubigrips
Midodrine 5 mg p.o. 3 times daily with breakfast lunch and dinner not after 5 PM
Continue to monitor daily orthostatics.
Check orthostatics before beginning PT
Impression / Plan
-
78M with a history of prostate cancer, s/p XRT, hypertension, dyslipidemia with statin intolerance, and type 2 diabetes who was referred to cardiology for an abnormal EKG. ejection fraction of 40% along with an abnormal stress test. He was
referred for [facility] which demonstrated multivessel coronary artery disease.
.
Quality Control Supervisor: Dr. Krunal Lujan
CAD s/p CABG x5 on 02/14/[address] Hastings
-Pre EF 45% & 60% post
-Remains in sinus.- no pacing needed
Continue postop care as directed by CT surgery
Orthostatic Hypotension with syncope:
-Quite orthostatic this morning still, blood pressure dropped to systolic of 81 standing
-h.o LH when standing at home , full syncope yesterday after Lasix and beta-darrian.
-Will keep volume replete for now no further diuresis
-add compression stockings.
-Will start low-dose midodrine hopefully this will be transient once he is more mobile
HTN, follow post operatively
Type II DM, Hgba1c 6.5%
Dyslipidemia, statin intolerant, on Nexlizet
Prostate cancer s/p XRT
Former smoker
SUBJECTIVE:
In chair. No distress. No shortness of breath or palpitations. No current lightheadedness.
Physical Exam
Vital Signs/Labs
Vital Signs
Temp Pulse Resp BP Pulse Ox
97.6 F 78 16 107/63 95
02/17/24 08:02 02/17/24 08:02 02/17/24 08:02 02/17/24 08:02 02/17/24 08:02
0802/17/24 02/18/24
06:59 06:59 06:59
Actual Weight 85.3 kg 84.2 kg
02/17/24 03:12
02/17/24 03:12
PT 18.6 Sec (11.4-14.6) H 02/14/24 16:30
INR 1.57 02/14/24 16:30
APTT 31.4 Sec (23.4-35.0) 02/14/24 16:30
Magnesium 2.1 mg/dl (1.6-2.3) 02/17/24 03:12
Physical Exam
Constitutional: No acute distress
Cardiovascular: Rhythm & rate is regular, JVD pressure is normal, Systolic murmur absent, Diastolic murmur absent and Pedal edema present ( trace bilaterally worse on the left leg)
Respiratory: Respiratory effort normal, Lungs clear to auscul., Wheeze Absent and Crackles Absent
Data Reviewed
-
Date of Service: February 17, 2024
[2024-02-17] MEDS: LOPRESSOR PO (09:44)
[2024-02-17] MEDS: NOVOLOG FLEXPEN-MODERATE RESISTANCE SC ×3 (11:17→17:50)
--- NOTE | 2024-02-17 11:57 | PTCARENOTE ---
routine VSS, AAOx3, assessment remains unchanged, tubigrips applied B/L LE, RIJ Cordis infusing KVO, pt tolerating OOB to chair
[2024-02-17 12:41] LABS: Glucose - Point of Care 152 mg/dl (70-99)
[2024-02-17] MEDS: FERRLECIT 110 MG IV (13:52)
--- NOTE | 2024-02-17 14:53 | PTCARENOTE ---
VSS, AAOx3 , NSR w/ PVCs, pt ambulated in hallway with no complaint of dizziness
--- NOTE | 2024-02-17 16:43 | CM ---
dc plans remain home when medically stable with f/u visit from the ct transitional care nurse
[2024-02-17 17:29] LABS: Glucose - Point of Care 148 mg/dl (70-99)
--- NOTE | 2024-02-17 20:00 | PTCARENOTE ---
Report received from ROME Rivera. Pt assessed and VS done. See flowsheet. Pt helped back to bed with RN and PCT. Pt tolerated standing and getting in bed W/O dizziness, lightheadedness. Remains neuro intact. [place]. Sats in chair 95% on room air. Sats in
bed are 91%. O2 at 1L/NC applied. BBS present, decreased to B bases. CDB and IS encouraged. Audible heart tones. Pt in SR with PVCs. Amiodarone given as ordered. Toprol held per order. See flowsheets for pulses and wounds. Belly soft, + c/o pain to
LLQ-states it is cramping pain. Not tender to palpation. No guarding. + flatus. No BM yet. Normoactive BS x 4. Lino intact, draining clear, yellow urine. Ongoing plan of care and monitoring.
[2024-02-17] MEDS: PACERONE 200 MG PO (20:33)
[2024-02-17] MEDS: NON-FORMULARY ITEM 1 TABLET PO (22:23)
[2024-02-17] MEDS: ASPIR LOW (ENTERIC COATED) 81 MG PO (22:23)
[2024-02-17] MEDS: FLOMAX 0.4 MG PO (22:24)
[2024-02-17 22:32] LABS: Glucose - Point of Care 242 mg/dl (70-99)
--- NOTE | 2024-02-17 23:30 | PTCARENOTE ---
Pt given scheduled meds. Glucose 242. PA notified. 4 units of regular Insulin given as ordered. Pt given CHG bath. New gown and linens provided. Dressing change done to old CT sites. See flowsheets. Lino care done. PA in to see pt. Pt turned onto R
side with pillow propped. Ongoing plan of care and monitoring. Remains in SR with occasional PVCs. 1L/NC in bed. Sats 97%. Normotensive.
[2024-02-17] MEDS: NOVOLIN R 0.04 UNITS SC (23:34)
[2024-02-18] VITALS (13 sets, daily range): BP systolic 96–148; BP diastolic 60–78; PULSE 76–80; O2SAT 99–100; BMI 28.1
--- NOTE | 2024-02-18 03:30 | PTCARENOTE ---
Pt asleep. Remains in SR with PVCs. O2 at 1L/NC while asleep.
--- NOTE | 2024-02-18 03:34 | W.PN.CT ---
Today's Communication / Plan
-
-No major issues overnight. Hemodynamically and neurologically intact
-Off all drips
-Noted to have urinary retention postop, has hx CKD and prostate ca s/p XRT, layne reinserted on 02/15 and started on Flomax. Will ambulate and attempt voiding trials later today vs tomorrow
-Noted to have postop orthostatic hypotension with a near syncopal episode during ambulation. Will stop Flomax if further orthostasis, does admit to hx of lightheadedness with abrupt standing from sitting
-Held BB last night given orthostasis, Lasix is also on hold. On Amiodarone for rate control
-D/C cordis
-F/U 2-view cxr
-Encourage use of IS
-OOB into chair/Ambulate
-Likely home tomorrow
Assessment / Plan
-
- mv-CAD - s/p CABG x 5 (In situ ALICEA to LAD, Ao to RSVG to diagonal, Ao to RSVG to Ramus sequential to LPL, Ao to RSVG to distal RCA); Left atrial modified maze/PVI; LAAE (35mm clip) on 02/14/[address] Hastings, pod #4
- Intraop POP: LVEF preop was mildly reduced at approximate 45% with regional wall motion abnormalities in the anterior septal region. Following surgery, EF improved significantly to 65% and is hyperdynamic with a cardiac index of over 2. There
were no regional wma postop. During cannulation he developed atrial fibrillation. A 35 mm clip was applied flush at the base and totally occlusive with no residual flow on color Doppler. After coming off cardiopulmonary bypass, he regained sinus
rhythm.
- Mild to moderately reduced left ventricular function, ischemic cardiomyopathy, chronic
- New onset atrial fibrillation
- Stable angina (fatigue and shortness of breath with activity likely his angina equivalent)
- Multivessel coronary disease
- Type 2 diabetes mellitus (hgb A1C 6.5)
- Hyperlipidemia
- Hypertension
- Gout
- CKD 3a (preop Cr 1.7)
- GERD
- Hepatic steatosis
- Prostate Ca S/P XRT, 2020
- R Femur Fx following fall S/P Repair
- Acute postop blood loss anemia - stable, no transfusion
- Acute postop atelectasis
- Acute postop hypokalemia
- Acute postop hyponatremia (133)
- Acute postop hypovolemia with subsequent hypervolemia
- Acute postop orthostasis with several episodes of near-syncope/syncope with ambulation
- Acute postop urinary retention- s/p straight cath x2 - Layne reinserted 02/15
Discussed patient care with: Cardiology, Nursing, Respiratory Therapy, Pharmacy and Care Team
Subjective
Procedure
- s/p CABG x 5 (In situ ALICEA to LAD, Ao to RSVG to diagonal, Ao to RSVG to Ramus sequential to LPL, Ao to RSVG to distal RCA); Left atrial modified maze/PVI; LAAE (35mm clip) on 02/14/[address] Hastings
-
Date of Service: February 18, 2024
Pt c/o mild incisional pain, otherwise feels well
Objective Data
-
PT 18.6 Sec (11.4-14.6) H 02/14/24 16:30
INR 1.57 02/14/24 16:30
APTT 31.4 Sec (23.4-35.0) 02/14/24 16:30
Vital Signs
Vital Signs
Temp Pulse Resp BP Pulse Ox
98.2 F 77 15 120/60 97
02/17/24 23:31 02/17/24 23:31 02/17/24 23:31 02/17/24 23:31 02/17/24 23:31
CT Intake/Output/Weight
02/17/24 02/17/24 02/18/24
06:59 18:59 06:59
Intake Total 240 / 265.1 610 / 660 50 / 660
Output Total 800 / 2200 950 / 1475 525 / 1475
Balance -560 / -1934.9 -340 / -815 -475 / -815
SaO2: 97 (RA)
Physical Exam
-
General: Awake, Oriented and AOx3
Cardiovascular: Regular rate & rhythm, No Murmurs, No Rub and No Gallop
Respiratory: Decreased Breath Sounds (at bases, otherwise clear)
Sternum: Stable
Incision: Clean, Dry, Intact and Dressing Intact
Extremities: Other (+ b/l LE trace edema)
Data Reviewed
-
Lab Results: Results Reviewed
Medications: Active Meds Reviewed
Chest X-Ray: Report Reviewed and Image Reviewed
ECG: Report Reviewed and Image Reviewed
--- NOTE | 2024-02-18 05:01 | PTCARENOTE ---
VS done. Labs drawn and sent. Pt going back to sleep.
[2024-02-18 05:19] LABS: Hematocrit 24.5 % (39.0-52.0); Hemoglobin 8.8 g/dL (13.0-18.0); Mean Corp Hgb Conc. 35.9 g/dL (33.0-37.0); Mean Corpuscular Hgb 33.2 pg (27.0-31.0); Mean Corpuscular Volume 92.5 fL (80.0-94.0); Mean Platelet Volume 8.9 fL (7.4-10.4); Platelet Count 248 10^3/uL (130-400); Red Blood Cell Count 2.65 10^6/uL (4.70-6.10); Red Cell Dist. Width 12.7 % (11.5-14.5); White Blood Cell Count 13.7 10^3/uL (4.8-10.8)
[2024-02-18 05:45] LABS: Blood Urea Nitrogen 33 mg/dl (9-20); Calcium 9.1 mg/dl (8.4-10.2); Carbon Dioxide 24 mmol/L (22-30); Chloride 104 mmol/L (98-107); Estimated Creatinine Clearance 41 ml/min; Glucose 123 mg/dl (70-99); Magnesium 2.4 mg/dl (1.6-2.3); Potassium 3.9 mmol/L (3.5-5.1); Sodium 137 mmol/L (135-145); eGFR 50.81
[2024-02-18] MEDS: TYLENOL 1000 MG PO ×3 (07:13→22:09)
--- NOTE | 2024-02-18 07:52 | PTCARENOTE ---
Patient received from senior linux engineer resting comfortably in bed, AAO x 3, states pain controlled at this time. NSR via cm, SaO2 @ 96% on RA. RIJ Cordis w/kvo infusing. Lino catheter to gravity. All procedural sites stable. Patient assisted oob to
chair, standing scale weight obtained. Patient updated to plan of care for the day, in agreement. See work list for full assessment and interventions performed.
[2024-02-18 08:26] LABS: Glucose - Point of Care 136 mg/dl (70-99)
[2024-02-18] MEDS: NOVOLOG FLEXPEN-MODERATE RESISTANCE SC ×2 (08:27→12:41)
[2024-02-18] MEDS: PACERONE 200 MG PO ×2 (09:00→21:32)
[2024-02-18] MEDS: BACTROBAN 2% OINTMENT 1 APPLIC NASAL (09:00)
[2024-02-18] MEDS: JARDIANCE 10 MG PO (09:01)
[2024-02-18] MEDS: PROTONIX 40 MG PO (09:01)
[2024-02-18] MEDS: SENOKOT-S 1 TABLET PO ×2 (09:01→21:32)
[2024-02-18] MEDS: ProAmatine 5 MG PO (09:01)
[2024-02-18] MEDS: KCL 40 MEQ PO (09:01)
[2024-02-18] MEDS: PLAVIX 75 MG PO (09:01)
--- NOTE | 2024-02-18 11:57 | PTCARENOTE ---
VS obtained, assessment stable. Patient remains oob in chair, states pain controlled at this time.
--- NOTE | 2024-02-18 12:22 | W.PN.CD ---
Today's Communication / Plan
-
Midodrine
OOB
Impression / Plan
-
78M with a history of prostate cancer, s/p XRT, hypertension, dyslipidemia with statin intolerance, and type 2 diabetes who was referred to cardiology for an abnormal EKG. ejection fraction of 40% along with an abnormal stress test. He was
referred for [facility] which demonstrated multivessel coronary artery disease.
.
License Registration Examiner: Dr. Krunal Lujan
CAD s/p CABG x5 on 02/14/[address] Hasitngs
-Pre EF 45% & 60% post
-Remains in sinus.- no pacing needed
Continue postop care as directed by CT surgery
Orthostatic Hypotension with syncope:
-Remains orthostatic, starting midodrine
-h.o LH when standing at home , full syncope yesterday after Lasix and beta-darrian.
-Will keep volume replete for now no further diuresis
-add compression stockings.
- likley related to surgery at this point and age, hopeful with time it improves
HTN, follow post operatively
Type II DM, Hgba1c 6.5%
Dyslipidemia, statin intolerant, on Nexlizet
Prostate cancer s/p XRT
Former smoker
SUBJECTIVE:
In chair. No distress. Feeling much improved
Physical Exam
Vital Signs/Labs
Vital Signs
Temp Pulse Resp BP Pulse Ox
98.6 F 76 16 118/69 98
02/18/24 11:57 02/18/24 11:57 02/18/24 11:57 02/18/24 11:56 02/18/24 11:57
02/17/24 02/18/24 02/19/24
06:59 06:59 06:59
Actual Weight 185 lb 10.067 oz 184 lb 11.958 oz
02/18/24 05:00
02/18/24 05:00
PT 18.6 Sec (11.4-14.6) H 02/14/24 16:30
INR 1.57 02/14/24 16:30
APTT 31.4 Sec (23.4-35.0) 02/14/24 16:30
Magnesium 2.4 mg/dl (1.6-2.3) H 02/18/24 05:00
Physical Exam
Constitutional: No acute distress and Comfortable
EENT: Anicteric
Cardiovascular: Rhythm & rate is regular and Pedal edema is absent
Respiratory: Respiratory effort normal and Lungs clear to auscul.
GI: Soft
Neuro/Psych: AO x 3
Data Reviewed
-
Date of Service: February 18, 2024
EKG: Tracing Personally Visualized and interpreted (sr)
Echo: Report Reviewed by me
Labs: Labs Reviewed by me
[2024-02-18 12:42] LABS: Glucose - Point of Care 136 mg/dl (70-99)
--- NOTE | 2024-02-18 15:53 | PTCARENOTE ---
VS obtained, assessment unchanged. Denies urge to void - bladder scan performed for 250ml. Remains oob in chair, at bedside.
[2024-02-18] MEDS: ProAmatine PO (15:54)
[2024-02-18] MEDS: NSS IV (17:02)
[2024-02-18 17:16] LABS: Glucose - Point of Care 165 mg/dl (70-99)
[2024-02-18] MEDS: NOVOLOG FLEXPEN-MODERATE RESISTANCE 1 UNITS SC (18:19)
--- NOTE | 2024-02-18 20:30 | PTCARENOTE ---
Report received from ROME Sorensen. Walking rounds done. VS done. Pt awake,alert, oriented x 4. Sitting in chair. Speech clear. Pt on room air. Sat 97%. BBS present. Mildly decreased to B bases. CDB and IS encouraged. IS 1500 mls. Pt in SR with PVCs.
Audible heart tones. For wound and pulse assessments, see flowsheets. Belly soft, nontender. Normoactive bs x 4. Pt passing flatus. Has not had a BM yet. Pt voiding clear, yellow urine.
No c/o pain. Ongoing plan of care and monitoring.
[2024-02-18] MEDS: FLOMAX 0.4 MG PO (22:09)
[2024-02-18] MEDS: DULCOLAX 5 MG PO (22:09)
[2024-02-18] MEDS: ASPIR LOW (ENTERIC COATED) 81 MG PO (22:09)
[2024-02-18] MEDS: NON-FORMULARY ITEM 1 TABLET PO (22:10)
[2024-02-18 22:20] LABS: Glucose - Point of Care 166 mg/dl (70-99)
--- NOTE | 2024-02-18 22:30 | PTCARENOTE ---
Pt helped back to bed ~ 2014. LIAN sowald d/c'ed per order at ~ 2100, and per hospital protocol. Pt given CHG bath. Face washed. Dressing change done to old CT sites. Pt helped to toilet to void clear, yellow urine in toilet. Pt helped back to bed.
No c/o dizziness or lightheadedness with standing/walking. BP when back to bed at 148 systolic. Dulcolax po given per order for constipation. Pt attempting to go to sleep for evening. Ongoing monitoring and plan of care.
[2024-02-19] VITALS (8 sets, daily range): BP systolic 104–129; BP diastolic 61–73; BMI 28.3
--- NOTE | 2024-02-19 00:45 | PTCARENOTE ---
VS done. Pt voided 175 mls clear, yellow urine in urinal. Pt attempting to go back to sleep. W/O c/o pain. Remains in SR with occasional PVCs.
--- NOTE | 2024-02-19 04:03 | W.PN.CT ---
Today's Communication / Plan
-
Plan:
-No major issues overnight. Hemodynamically and neurologically intact
-Off all drips
-Postop urinary retention has resolved
-Postop orthostasis has resolved
-Received 1 dose of Midodrine yesterday, otherwise BB and Lasix remains on hold. On Amiodarone for rate control
-Pt is new to BB, may be able to tolerate 12.5mg Toprol XL today
-Cont. ASA and Plavix
-C/O constipation, received Senokot and Dulcolax last night, will try MOM if no BM this AM
-Encourage use of IS
-OOB into chair/Ambulate
-Home today
Assessment / Plan
-
Assessment:
- mv-CAD - s/p CABG x 5 (In situ ALICEA to LAD, Ao to RSVG to diagonal, Ao to RSVG to Ramus sequential to LPL, Ao to RSVG to distal RCA); Left atrial modified maze/PVI; LAAE (35mm clip) on 02/14/[address] Hastings, pod #5
- Intraop POP: LVEF preop was mildly reduced at approximate 45% with regional wall motion abnormalities in the anterior septal region. Following surgery, EF improved significantly to 65% and is hyperdynamic with a cardiac index of over 2. There
were no regional wma postop. During cannulation he developed atrial fibrillation. A 35 mm clip was applied flush at the base and totally occlusive with no residual flow on color Doppler. After coming off cardiopulmonary bypass, he regained sinus
rhythm.
- Mild to moderately reduced left ventricular function, ischemic cardiomyopathy, chronic
- New onset atrial fibrillation
- Stable angina (fatigue and shortness of breath with activity likely his angina equivalent)
- Multivessel coronary disease
- Type 2 diabetes mellitus (hgb A1C 6.5)
- Hyperlipidemia
- Hypertension
- Gout
- CKD 3a (preop Cr 1.7)
- GERD
- Hepatic steatosis
- Prostate Ca S/P XRT, 2020
- R Femur Fx following fall S/P Repair
- Acute postop blood loss anemia - stable, no transfusion
- Acute postop atelectasis
- Acute postop hypokalemia
- Acute postop hyponatremia (133)
- Acute postop hypovolemia with subsequent hypervolemia
- Acute postop orthostasis with several episodes of near-syncope/syncope with ambulation
- Acute postop urinary retention- s/p straight cath x2 - Lino reinserted 02/15
Discussed patient care with: Cardiology, Nursing, Respiratory Therapy, Pharmacy and Care Team
Subjective
Procedure
- s/p CABG x 5 (In situ ALICEA to LAD, Ao to RSVG to diagonal, Ao to RSVG to Ramus sequential to LPL, Ao to RSVG to distal RCA); Left atrial modified maze/PVI; LAAE (35mm clip) on 02/14/[address] Hastings
-
Date of Service: February 19, 2024
Pt c/o mild incisional pain and constipation, otherwise feels well
Objective Data
-
PT 18.6 Sec (11.4-14.6) H 02/14/24 16:30
INR 1.57 02/14/24 16:30
APTT 31.4 Sec (23.4-35.0) 02/14/24 16:30
Vital Signs
Vital Signs
Temp Pulse Resp BP Pulse Ox
97.8 F 79 16 129/70 99
02/19/24 00:44 02/19/24 02:00 02/19/24 00:44 02/19/24 00:44 02/19/24 00:44
CT Intake/Output/Weight
02/18/24 02/18/24 02/19/24
06:59 18:59 06:59
Intake Total 50 / 660 610 / 630 20 / 630
Output Total 525 / 1475 825 / 1000 175 / 1000
Balance -475 / -815 -215 / -370 -155 / -370
SaO2: 99 (RA)
Physical Exam
-
General: Awake, Oriented and AOx3
Cardiovascular: Regular rate & rhythm, No Murmurs, No Rub and No Gallop
Respiratory: Decreased Breath Sounds
Sternum: Stable
Incision: Clean, Dry, Intact and Dressing Intact
Extremities: Other (+Trace B/L LE edema)
Data Reviewed
-
Lab Results: Results Reviewed
Medications: Active Meds Reviewed
Chest X-Ray: Report Reviewed and Image Reviewed
ECG: Report Reviewed and Image Reviewed
--- NOTE | 2024-02-19 04:47 | PTCARENOTE ---
VS done. Labs drawn and sent. Pt w/o c/o pain. Pt voided 275 mls clear yellow urine in urinal.
[2024-02-19 04:52] LABS: Hemoglobin 9.5 g/dL (13.0-18.0); Mean Corp Hgb Conc. 35.2 g/dL (33.0-37.0); Mean Corpuscular Hgb 33.8 pg (27.0-31.0); Mean Corpuscular Volume 96.1 fL (80.0-94.0); Mean Platelet Volume 8.6 fL (7.4-10.4); Platelet Count 278 10^3/uL (130-400); Red Blood Cell Count 2.81 10^6/uL (4.70-6.10); Red Cell Dist. Width 12.5 % (11.5-14.5); White Blood Cell Count 13.7 10^3/uL (4.8-10.8)
[2024-02-19 05:07] LABS: Blood Urea Nitrogen 34 mg/dl (9-20); Calcium 9.1 mg/dl (8.4-10.2); Carbon Dioxide 24 mmol/L (22-30); Chloride 106 mmol/L (98-107); Estimated Creatinine Clearance 41 ml/min; Glucose 135 mg/dl (70-99); Magnesium 2.5 mg/dl (1.6-2.3); Potassium 4.5 mmol/L (3.5-5.1); Sodium 136 mmol/L (135-145); eGFR 50.81
[2024-02-19] MEDS: TYLENOL 1000 MG PO (05:35)
[2024-02-19] MEDS: CALCIUM GLUCONATE 100 IV (05:35)
--- NOTE | 2024-02-19 05:49 | PTCARENOTE ---
Ca Gluconate 1 GM started to transfuse IV over 30 minutes, per order. Last BP 109/65 while lying in bed.
--- NOTE | 2024-02-19 07:16 | PTCARENOTE ---
Ca gluconate infused. Pt helped to sitting with 2 RNs. BP done. 104 systolic. Pt helped to standing and weighed. Became lightheaded while stepping off scale. Helped to recliner chair to sit. BP 108/65. Lightheadedness subsided. Report to ROME Warner
--- NOTE | 2024-02-19 08:07 | W.DCSUMMARY ---
Discharge Summary
Discharge Data
Date of Admission: 02/14/24
Date of Discharge: 02/19/24
Total time spent discharging patient (in min): 45
-
Pending Results: No
Hospital Course
Patient was admitted electively on February 14, 2024 and underwent coronary artery bypass grafting by Dr. Ross Hastings. Please refer to separately dictated operative report for complete details. Postoperatively the patient was transferred to the
open-heart unit on low-dose Levophed. He progressed well and was extubated per protocol. Levophed was weaned off throughout the night and was completely off by postoperative day #1. He otherwise remained hemodynamically stable throughout the night.
Postoperative day #1: Patient continues to do well. Left pleural chest tube and Lino catheter were discontinued. Invasive monitoring lines were removed. Patient was diuresed gently. Hypotension and history of orthostasis prevented starting of
beta-blockers. He started working with therapy.
Postoperative day #2: The patient required straight cath overnight and Flomax was started. Epicardial pacing wires and mediastinal chest tubes were removed. Patient was again diuresed with IV Lasix. Lino was reinserted later in the day for
urinary retention. Insulin drip was stopped and the patient transition to telemetry phase. He was started on his home Jardiance. The patient did have a near syncopal event while ambulating. There was no noted bradycardia on telemetry. He was
not injured. This was again related to his history of orthostasis and his perioperative state.
Postoperative day #3: Beta-blockers were held secondary to continued difficulties with orthostasis. Consideration was given to starting midodrine however we elected to see how the patient did without beta-blockers. His blood pressure remained soft
throughout the day especially with standing. He continued to work with therapy however and was able to walk on the stairs without difficulties.
Postoperative day #4: Patient was started on midodrine in the morning. Throughout the rest of the day his blood pressure remained quite stable with systolic blood pressures in the 130s. Midodrine was held after a single dose in the morning. 2
view chest x-ray revealed stable lungs. Cordis was removed. Lino catheter was removed and the patient was able to successfully void.
Postoperative day #5: Patient's blood pressure remained stable off midodrine however given the events during his stay we elected to not start a beta-darrian in this patient. The risk of hypotension and possible syncope outweighed the benefit of
beta-darrian therapy at this time. He also has a known allergy to statins and therefore will not be discharged on a statin. He will however go home on aspirin and Plavix and he should remain on this for at least 1 year. Due to drug interactions
between Plavix and omeprazole I did discharge him on Protonix during that time. He can change back to his omeprazole if he wishes after the therapy is completed. He remained stable on room air and is ambulating well. He will be home with his
who will watch over him. I explained these discharge instructions to the patient detail and answered his questions to his satisfaction prior to his leaving today. He has our phone number and knows he can call us 24 hours a day with any issues that
may arise.
Discharge Plan
-
Patient Disposition: Home (Routine Discharge)
Discharge Diagnosis/Procedures: - Multivessel coronary artery disease-status post coronary artery bypass grafting x 5 (In situ left internal mammary artery to left anterior descending, reversed saphenous vein graft aorta to diagonal, reversed
saphenous vein graft aorta to Ramus sequential to left posterolateral branch, reversed saphenous vein graft aorta to distal right coronary artery); Left atrial modified maze/pulmonary vein isolation; left atrial appendage exclusion (35mm clip) on
02/14/[address] Hastings
-Intraoperative transesophageal echocardiogram: Left ventricular ejection fraction preop was mildly reduced at approximate 45% with regional wall motion abnormalities in the anterior septal region. Following surgery, ejection fraction improved
significantly to 65% and is hyperdynamic with a cardiac index of over 2. There were no regional wall motion abnormalities postop. During cannulation he developed atrial fibrillation. A 35 mm clip was applied flush at the base and totally occlusive
with no residual flow on color Doppler. After coming off cardiopulmonary bypass, he regained sinus rhythm.
- Mild to moderately reduced left ventricular function, ischemic cardiomyopathy, chronic
- New onset atrial fibrillation
- Stable angina (fatigue and shortness of breath with activity likely his angina equivalent)
- Multivessel coronary disease
- Type 2 diabetes mellitus
- Hyperlipidemia
- Hypertension
- Gout
-Chronic kidney disease stage 3a (baseline creatinine 1.7)
-Gastroesophageal reflux disease
- Hepatic steatosis
- Prostate cancer status post radiation, 2020
-Right femur fracture following fall status post repair
- Acute postoperative blood loss anemia - stable, no transfusion
- Acute postoperative atelectasis
- Acute postoperative hypokalemia
- Acute postoperative hyponatremia (133)
- Acute postoperative hypovolemia with subsequent hypervolemia
- Acute postoperative orthostasis with several episodes of near-syncope/syncope with ambulation
- Acute postoperative urinary retention-status post straight cath x 2 - Lino reinserted 02/15, subsequently passed voiding trial prior to discharge
Condition: Fair
Diet: Low Cholesterol, Low Sodium and Diabetic, Carb Controlled
Activity: No strenuous activity
Driving Restrictions: Not until seen by your Dr
Bathing Restrictions: OK to Shower
Other Services: Cardiac Rehab
Specialty Instructions: Weigh Daily- Call MD for wt gain/loss 3 lbs overnight/5 lbs in 1 week
Activity Restrictions/Additional Instructions:
Please call to make appointments for Phase II Cardiac Rehab:
[place]': [phone]
ACTIVITY:
-No strenuous activity: no heavy lifting, pushing, pulling anything over 15 pounds for one month
-continue to use stairs as tolerated
DRIVING RESTRICTIONS:
-No driving for one month or until approved by your surgeon
WOUND CARE:
-Shower daily. Use soap & water.
-No lotions, creams or powders on incision area.
DIET:
-continue a low fat/low cholesterol diet.
-IF you are diabetic, continue carb controlled diet.
CARDIAC REHAB:
-Please make appointment to start in 5-6 weeks with your local hospital program. (See Cardiac Rehabilitation Discharge Booklet).
SPECIALTY INSTRUCTIONS:
-Weigh yourself daily. Call your physician for any weight gain/loss of 3 lbs overnight or 5 lbs in one week.
-REPORT any clicking noise or uneven appearance of your sternum to your surgeon immediately.
-If you smoke, you are instructed to quit. The [place] smoking hotline phone number is [phone]
Referrals:
CT Transitional Care Nurse [Outside]
(
The Cardiothoracic Transitional Care Nurse will call you to set up a visit in 1-2 days.)
Vince Coffey DO [Family Provider] -
Krunal Lujan DO [Active] - 04/03/24 2:40 pm (Your appt on Mar 13 with Stiven Lujan was CANCELLED)
Ross Hastings MD [Active] - 03/22/24 3:00 pm
Prescriptions:
New
acetaminophen 325 mg Tablet
650 mg PO Q4HPRN PRN (Reason: mild pain,headache,temp >101F ) Qty: 0 0RF
clopidogrel 75 mg Tablet
75 mg PO DAILY Qty: 30 2RF
tamsulosin 0.4 mg Capsule
0.4 mg PO HS Qty: 30 0RF
oxycodone 5 mg Tablet
5 mg PO Q4HPRN PRN (Reason: moderate pain) Qty: 30 0RF
pantoprazole 40 mg Tablet,Delayed Release (Dr/Ec)
40 mg PO DAILY Qty: 30 2RF
Continued
aspirin 81 mg Tablet,Delayed Release (Dr/Ec)
81 mg PO HS
coenzyme Q10 [CoQ-10] 100 mg Capsule
200 mg PO DAILY
cholecalciferol (vitamin D3) [Vitamin D3] 50 mcg (2,000 unit) Capsule
50 mcg PO DAILY
Jardiance 10 mg Tablet
10 mg PO DAILY
Centrum Adult 50 Plus 80 mcg Tablet,Chewable
1 tab PO DAILY
Nexlizet 180-10 mg Tablet
1 tab PO HS
Mounjaro 10 mg/0.5 mL Pen Injector
10 mg SC YEPEZ
Held
omeprazole 20 mg Tablet,Delayed Release (Dr/Ec)
20 mg PO Q48H
Hold Instructions: Resume on 02/20/25. Hold while taking plavix. Take protonix instead (due to drug interaction). May stop protonix and resume prilosec once off of plavix
Discontinued
amlodipine 5 mg Tablet
5 mg PO QPM
hydrochlorothiazide 12.5 mg Tablet
12.5 mg PO HS
Discharge Orders:
Discharge Patient (As Directed); Ordered 02/19/24
Ordered By: Joe Gamez
Care Plan Goals
Care Plan Goals:
Problem: Readiness for enhanced knowledge related to diagnosis and treatment plan
Goal: Understand your diagnosis and treatment plan needs, including medications if applicable.
Instructions: Know your diagnosis, underlying causes and treatment plan options, including medications if applicable. Consult with your health care team to learn about your diagnosis and treatment plan, including medications if applicable.
Discharge Date and Time
Print Language: HUNGARIAN
[2024-02-19 08:38] LABS: Glucose - Point of Care 149 mg/dl (70-99)
[2024-02-19] MEDS: NOVOLOG FLEXPEN-MODERATE RESISTANCE SC (08:44)
[2024-02-19] MEDS: PACERONE 200 MG PO (09:04)
[2024-02-19] MEDS: PLAVIX 75 MG PO (09:05)
[2024-02-19] MEDS: PROTONIX 40 MG PO (09:05)
[2024-02-19] MEDS: SENOKOT-S 1 TABLET PO (09:05)
[2024-02-19] MEDS: JARDIANCE 10 MG PO (09:06)
--- NOTE | 2024-02-19 10:46 | W.PN.CD ---
Today's Communication / Plan
-
d/c today f/u with outpt principal technical writer
Impression / Plan
-
78M with a history of prostate cancer, s/p XRT, hypertension, dyslipidemia with statin intolerance, and type 2 diabetes who was referred to cardiology for an abnormal EKG. ejection fraction of 40% along with an abnormal stress test. He was
referred for [facility] which demonstrated multivessel coronary artery disease.
.
Motorbike Courier: Dr. Krunal Lujan
CAD s/p CABG x5 on 02/14/[address] Hastings
-Pre EF 45% & 60% post
-Remains in sinus.- no pacing needed
Continue postop care as directed by CT surgery
Orthostatic Hypotension with syncope:
-cont midodrine, improved orthostasis
-h.o LH when standing at home , full syncope yesterday after Lasix and beta-darrian.
-Will keep volume replete for now no further diuresis
-add compression stockings.
- likley related to surgery at this point and age, improving
HTN, follow post operatively
Type II DM, Hgba1c 6.5%
Dyslipidemia, statin intolerant, on Nexlizet
Prostate cancer s/p XRT
Former smoker
SUBJECTIVE:
In chair. No distress. Feeling much improved
Physical Exam
Vital Signs/Labs
Vital Signs
Temp Pulse Resp BP Pulse Ox
97.7 F 79 16 124/73 98
02/19/24 08:00 02/19/24 08:00 02/19/24 08:00 02/19/24 09:04 02/19/24 09:12
02/18/24 02/19/24 02/20/24
06:59 06:59 06:59
Actual Weight 184 lb 11.958 oz 186 lb 1.122 oz
02/19/24 04:38
02/19/24 04:38
PT 18.6 Sec (11.4-14.6) H 02/14/24 16:30
INR 1.57 02/14/24 16:30
APTT 31.4 Sec (23.4-35.0) 02/14/24 16:30
Magnesium 2.5 mg/dl (1.6-2.3) H 02/19/24 04:38
Physical Exam
Constitutional: No acute distress
Cardiovascular: Rhythm & rate is regular and Pedal edema is absent
Respiratory: Respiratory effort normal and Lungs clear to auscul.
GI: Soft
Neuro/Psych: AO x 3
Data Reviewed
-
Date of Service: February 19, 2024
EKG: Tracing Personally Visualized and interpreted (sr)
Echo: Report Reviewed by me
Labs: Labs Reviewed by me
--- NOTE | 2024-02-19 10:59 | PTCARENOTE ---
Patient care assumed from nightshift RN. Patient fully alert and oriented, denies pain. OOB in chair for breakfast, tolerated meals well. Pt had First BM since surgery, reports significant relief. Afebrile with temp of 97.7. NSR, rate 70s. BP stable
at 124/73. Reported mild dizziness after first time getting OOB this morning, but orthostatic bp remained stable and has not reported dizziness any other time upon standing/ambulating. Requires minimal assistance standing, and ambulates requiring no
assistance. Reaching levels of 1750cc with I.S. Pulses palpable in upper and lower extremities bilaterally. Voiding in bathroom with no complications. Surgical incisions clean, dry, intact. Discharge instructions read to patient and patient
understood. PIV still intact, awaiting family member arrival to discharge.
--- NOTE | 2024-02-19 12:34 | PTCARENOTE ---
PIV removed. Patient brought to vehicle by RN via wheelchair. Discharged at 1215.
== END 2024-02-19 12:15 | disposition home or self-care (01) | DRG 234 ==
LOC: CVICU 07:25
PROVIDERS: Anesthesiology; Nurse Practitioner; ADMITTING PHYSICIAN Thoracic Surgery (Cardiothoracic Vascular Surgery); CONSULT PHYSICIAN Internal Medicine; FAMILY PHYSICIAN Family Medicine
PROC: 02580ZZ Destruction of Conduction Mechanism, Open Approach (ICD-10-PCS; 2024-02-14)
PROC: B24BZZ4 Ultrasonography of Heart with Aorta, Transesophageal (ICD-10-PCS; 2024-02-14)
PROC: 02L70CK Occlusion of Left Atrial Appendage with Extraluminal Device, Open Approach (ICD-10-PCS; 2024-02-14)
PROC: 06BQ4ZZ Excision of Left Saphenous Vein, Percutaneous Endoscopic Approach (ICD-10-PCS; 2024-02-14)
PROC: 5A1221Z Performance of Cardiac Output, Continuous (ICD-10-PCS; 2024-02-14)
PROC: 02100Z9 Bypass Coronary Artery, One Artery from Left Internal Mammary, Open Approach (ICD-10-PCS; 2024-02-14)
PROC: 021309W Bypass Coronary Artery, Four or More Arteries from Aorta with Autologous Venous Tissue, Open Approach (ICD-10-PCS; 2024-02-14)
DX: I25.118 Atherosclerotic heart disease of native coronary artery with other forms of angina pectoris (principal); D62 Acute posthemorrhagic anemia; J98.11 Atelectasis; E87.1 Hypo-osmolality and hyponatremia; I48.91 Unspecified atrial fibrillation; I25.5 Ischemic cardiomyopathy; E11.22 Type 2 diabetes mellitus with diabetic chronic kidney disease; E78.5 Hyperlipidemia, unspecified; M10.9 Gout, unspecified; K76.0 Fatty (change of) liver, not elsewhere classified; K21.9 Gastro-esophageal reflux disease without esophagitis; I95.1 Orthostatic hypotension; R33.9 Retention of urine, unspecified; R55 Syncope and collapse; N18.31 Chronic kidney disease, stage 3a; I13.10 Hypertensive heart and chronic kidney disease without heart failure, with stage 1 through stage 4 chronic kidney disease, or unspecified chronic kidney disease; E87.6 Hypokalemia; E87.70 Fluid overload, unspecified; E86.1 Hypovolemia; Z82.49 Family history of ischemic heart disease and other diseases of the circulatory system; Z85.46 Personal history of malignant neoplasm of prostate; Z87.891 Personal history of nicotine dependence; Z88.8 Allergy status to other drugs, medicaments and biological substances; Z92.3 Personal history of irradiation
CPT/HCPCS: 36415; 71045; 71046; 80048; 80053; 81003; 82248; 82330; 82565; 82805; 82810; 82947; 82962; 83036; 83735; 84132; 84302; 84520; 85014; 85018; 85025; 85027; 85049; 85610; 85730; 86850; 86900; 86901; 86920; 87070; 93005; 93312; 93320; 93325; 93880; 94002; J2916; P9045; P9047